=== PATIENT | female | born 1930 | race Caucasian/White ===

== ENCOUNTER 2017-01-25 16:16 | Inpatient (IN) | payer OTHER, BC ==
[2017-01-25] MEDS ORDERED: NS 1,000 ML IV ONE (16:30)
[2017-01-25 16:45] LABS: % IMMATURE GRANULYOCYTES 0.5 % (0.0-1.1); ABSOLUTE IMMATURE GRANULOCYTES 0.05 10^3/uL (0.00-0.10); ADD DIFF? NO; ADD MORPH? NO; ADD SCAN? NO; ATYPICAL LYMPHOCYTE FLAG 0 (0-99); FRAGMENT RBC FLAG 20 (0-99); HEMATOCRIT 45.1 % (38.0-47.0); LEFT SHIFT FLG 0 (0-99); LIPEMIA HEMOLYSIS FLAG 80 (0-99); MEAN CELL HEMOGLOBIN 32.5 pg (27.9-34.1); MEAN CELL HEMOGLOBIN CONCENTR. 33.3 g/dL (32.4-36.7); MEAN CELL VOLUME 97.6 fL (81.5-99.8); MEAN PLATELET VOLUME 10.7 fL (8.7-11.7); PLATELET CLUMPS FLAG 0 (0-99); PLATELET COUNT 243 10^3/uL (150-400); RED BLOOD CELL COUNT 4.62 10^6/uL (4.18-5.33); RED CELL DISTRIBUTION WIDTH 17.2 % (11.5-15.2)
[2017-01-25 16:56] LABS: ANION GAP 11 mEq/L (8-16); CALCIUM 10.4 mg/dL (8.5-10.4); CARBON DIOXIDE 19 mEq/l (22-31); CHLORIDE 105 mEq/L (97-110); CREATININE 1.6 mg/dL (0.6-1.0); GLOMERULAR FILTRATION RATE 31; GLUCOSE 137 mg/dL (70-100); SODIUM 135 mEq/L (134-144)
[2017-01-25 17:22] LABS: POTASSIUM 7.2 mEq/L (3.5-5.2)
--- NOTE | 2017-01-25 17:33 | CPEKG ---
Heart Rate: 64 RR Interval: 938 QRSD Interval: 92 QT Interval: 412 QTC Interval: 425 QRS [place]: -42 T Wave [place]: -34 EKG Severity - ABNORMAL ECG - EKG Impression: ATRIAL FIBRILLATION, V-RATE 55-74 EKG Impression: LEFT AXIS DEVIATION EKG Impression: ABNORMAL T, CONSIDER ISCHEMIA, INFERIOR LEADS Electronically Signed By: Roger Giraldo 25-Jan-2017 19:33:55
[2017-01-25] MEDS ORDERED: INSULIN REGULAR HUMAN 100 UNIT/ML IVP ONE (17:45)
[2017-01-25] MEDS ORDERED: SODIUM BICARBONATE 150 MEQ in D5W 1,000 ML IV ONE (17:45)
[2017-01-25] MEDS ORDERED: CALCIUM GLUC 10% 1 GM/10 ML VIAL IVP ONE (17:45)
[2017-01-25] MEDS ORDERED: ALBUTEROL 3 ML DEYVIAL IH ONE (17:45)
[2017-01-25] MEDS ORDERED: INSULIN REGULAR HUMAN 10 UNIT, COSIGN. REQUIRED 1 EA in D10W 500 ML IV ONE (17:45)
[2017-01-25] MEDS ORDERED: D50W 25 GM/50 ML SYR IVP ONE (17:45)
--- NOTE | 2017-01-25 17:53 | EDPHY ---
H & P Stated Complaint: weakness starting this morning Time Seen by Provider: 01/25/17 16:20 HPI/ROS: CHIEF COMPLAINT: Generalized weakness HISTORY OF PRESENT ILLNESS: The patient presents to the ED with complaints of generalized weakness. The patient has had several weeks of diarrhea. The patient and her do not believe she has been on recent antibiotics. She has a history of atrial fibrillation and is anticoagulated. The patient has had 2 episodes today which sounds consistent with vasovagal syncope where she has been unable to get up from a seated position secondary to weakness. The patient has not had any fall or trauma. The patient denies any headache, neck pain, shortness of breath or focal numbness or weakness. The patient reports that her symptoms of weakness are moderate to severe in nature. The symptoms are endorse by the patient's . REVIEW OF SYSTEMS: A comprehensive 10 point review of systems is otherwise negative aside from elements mentioned in the history of present illness. Source: Patient Exam Limitations: No limitations - Personal History Current Tetanus/Diphtheria Vaccine: Yes Current Tetanus Diphtheria and Acellular Pertussis (TDAP): Yes Tetanus Vaccine Date: 2007 per pt's - Medical/Surgical History Hx Asthma: No Hx Chronic Respiratory Disease: No Hx Diabetes: Yes Hx Cardiac Disease: Yes Hx Renal Disease: No Hx Cirrhosis: No Hx Alcoholism: No Hx HIV/AIDS: No Hx Splenectomy or Spleen Trauma: No Other PMH: pmh- afib, htn, hld, obesity, CAD, BLE edema, BLE ulcers, sleep apnea - CPAP hs, SAH 2011, mulitple falls, DM II, pleural effusions, PE, gout-right index finger. psh- L artificial knee, T/A, stent 1995- - Social History Smoking Status: Former smoker - Physical Exam Exam: General Appearance: Elderly female Eyes: Pupils equal and round no pallor or injection ENT, Mouth: Dry mucous membranes Respiratory: There are no retractions, lungs are clear to auscultation Cardiovascular: Regular rate and rhythm Gastrointestinal: Abdomen is soft and nontender, no masses, bowel sounds normal Neurological: A&O, normal motor function, normal sensory exam, normal cranial nerves Skin: Warm and dry, no rashes Musculoskeletal: Neck is supple nontender Extremities: symmetrical, full range of motion Constitutional: Initial Vital Signs Temperature (C) 36.5 C 01/25/17 16:22 Heart Rate 73 01/25/17 16:22 Respiratory Rate 16 01/25/17 16:22 Blood Pressure 149/78 H 01/25/17 16:22 O2 Sat (%) 95 01/25/17 16:22 O2 Delivery Mode Room Air Allergies/Adverse Reactions: Sulfa (Sulfonamide Antibiotics) Allergy (Unknown, Verified 07/29/16 23:11) Home Medications: Medication Instructions Recorded Vit C/Dl-E AC/Lut/Copper/Znox 1 each PO DAILY 10/05/11 [Preservision Softgel] Ascorbic Acid [Vitamin C 500 mg 500 mg PO BID 06/16/14 (*)] Calcium Carbonate [Tums 500MG (*)] 500 mg PO BID 06/16/14 Cyanocobalamin [Vitamin B12 (*)] 1,000 mcg PO DAILY 06/16/14 amLODIPine BESYLATE [Norvasc 5 mg 5 mg PO DAILY 06/16/14 (*)] metFORMIN HCL [Glucophage 500 mg 1,000 mg PO BIDMEAL 06/16/14 (*)] Allopurinol [Allopurinol 300 MG 150 mg PO DAILY 09/18/15 (RX)] Aspirin EC [Aspirin EC 81 mg (*)] 81 mg PO DAILY 09/18/15 Cholecalciferol Vit D3 [Vitamin D3 2,000 units PO DAILY 09/18/15 2000 units] Warfarin Sodium [Coumadin 5MG (*)] 2.5 mg PO SUTUWEFRSA@09/18/15 [place]-3 Fatty Acids [Fish Oil 1000 1,000 mg PO BID 03/30/16 mg (*)] Spironolactone [Aldactone 25 MG 25 mg PO DAILY 03/30/16 (*)] Warfarin Sodium [Coumadin 3MG (*)] 3 mg PO MOTH@03/30/16 Medical Decision Making - Diagnostics EKG Interpretation: EKG: Complete interpretation has been separately recorded in the [facility] archive. Summary impression: Atrial fibrillation, nonspecific ST T wave changes noted ED Course/Re-evaluation: The patient is noted to have acute hyperkalemia with potassium of 6.9 on i-STAT testing and 7.2 on formal lab testing. Her EKG demonstrates rate controlled AFib with nonspecific ST T wave changes noted. The patient was placed on a patient monitor. She received a L of normal saline. She received IV calcium, insulin, glucose and bicarb. I reviewed the patient's medicines and the [facility]. The patient is currently on spironolactone. The patient presents to the ED with acute hyperkalemia likely secondary to dehydration, renal insufficiency and potentially spironolactone. Patient did received treatment of her acute hyperkalemia. She has no evidence of an unstable arrhythmia noted on her EKG. The patient will require admission to the hospital for close observation and treatment. Consultation is made with Dr. Harinder Coombs at 6:30 p.m. who will admit the patient. Differential Diagnosis: Differential diagnosis considered includes dehydration, metabolic abnormality, renal failure, unstable arrhythmia - Data Points Laboratory Results: Laboratory Results 01/25/17 16:30 01/25/17 16:30 01/25/17 01/25/17 01/25/17 17:48 16:30 16:30 WBC 10.28 10^3/uL H 10^3/uL (3.80-9.50) RBC 4.62 10^6/uL 10^6/uL (4.18-5.33) Hgb 15.0 g/dL g/dL (12.6-16.3) Hct 45.1 % % (38.0-47.0) MCV 97.6 fL fL (81.5-99.8) MCH 32.5 pg pg (27.9-34.1) MCHC 33.3 g/dL g/dL (32.4-36.7) RDW 17.2 % H % (11.5-15.2) Plt Count 243 10^3/uL 10^3/uL (150-400) MPV 10.7 fL fL (8.7-11.7) Neut % (Auto) 84.3 % H % (39.3-74.2) Lymph % (Auto) 7.8 % L % (15.0-45.0) [place] % (Auto) 6.9 % % (4.5-13.0) Eos % (Auto) 0.2 % L % (0.6-7.6) Baso % (Auto) 0.3 % % (0.3-1.7) Nucleat RBC Rel Count 0.0 % % (0.0-0.2) Absolute Neuts (auto) 8.67 10^3/uL H 10^3/uL (1.70-6.50) Absolute Lymphs (auto) 0.80 10^3/uL L 10^3/uL (1.00-3.00) Absolute Monos (auto) 0.71 10^3/uL 10^3/uL (0.30-0.80) Absolute Eos (auto) 0.02 10^3/uL L 10^3/uL (0.03-0.40) Absolute Basos (auto) 0.03 10^3/uL 10^3/uL (0.02-0.10) Absolute Nucleated RBC 0.00 10^3/uL 10^3/uL (0-0.01) Immature Gran % 0.5 % % (0.0-1.1) Immature Gran # 0.05 10^3/uL 10^3/uL (0.00-0.10) PT 30.5 SEC H SEC (12.0-15.0) INR 2.88 H (0.83-1.16) Sodium 135 mEq/L mEq/L (134-144) Potassium 7.2 mEq/L H* mEq/L (3.5-5.2) Chloride 105 mEq/L mEq/L (97-110) Carbon Dioxide 19 mEq/l L mEq/l (22-31) Anion Gap 11 mEq/L mEq/L (8-16) BUN 38 mg/dL H mg/dL (7-23) Creatinine 1.6 mg/dL H mg/dL (0.6-1.0) Estimated GFR 31 Glucose 137 mg/dL H mg/dL (70-100) Calcium 10.4 mg/dL mg/dL (8.5-10.4) Medications Given: Discontinued Medications Sodium Chloride (Ns) 1,000 mls @ 0 mls/hr IV ONCE ONE PRN Reason: Wide Open Stop: 01/25/17 16:31 Last Admin: 01/25/17 17:00 Dose: 1,000 mls Departure - Departure Disposition: [facility] Acute Clinical Impression: Dehydration, Diarrhea, Hyperkalemia Condition: Fair
[2017-01-25 18:00] LABS: INR 2.88 (0.83-1.16); PROTIME(PATIENT) 30.5 SEC (12.0-15.0)
[2017-01-25 19:56] LABS: COLOR YELLOW; LEUKOCYTE ESTERASE,URINE NEGATIVE (NEGATIVE); NITRITE,URINE NEGATIVE (NEGATIVE)
[2017-01-25] MEDS ORDERED: ONDANSETRON DISINTEGRATING 4 MG TAB PO PRN (20:22)
[2017-01-25] MEDS ORDERED: ACETAMINOPHEN 325 MG TAB PO PRN (20:22)
[2017-01-25] MEDS ORDERED: ONDANSETRON 4 MG/2 ML VIAL IVP PRN (20:22)
[2017-01-25] MEDS ORDERED: SODIUM POLY SULF 15 GM/60 ML BOTTLE PO ONE ×2 (20:34→23:30)
[2017-01-25 20:38] LABS: POTASSIUM 5.9 mEq/L (3.5-5.2)
[2017-01-25 21:28] LABS: MAGNESIUM 1.4 mg/dL (1.6-2.3)
[2017-01-26 00:40] LABS: ANION GAP 10 mEq/L (8-16); CALCIUM 9.3 mg/dL (8.5-10.4); CARBON DIOXIDE 20 mEq/l (22-31); CHLORIDE 106 mEq/L (97-110); CREATININE 1.3 mg/dL (0.6-1.0); GLOMERULAR FILTRATION RATE 39; GLUCOSE 133 mg/dL (70-100); POTASSIUM 5.9 mEq/L (3.5-5.2); SODIUM 136 mEq/L (134-144)
[2017-01-26 04:54] LABS: % IMMATURE GRANULYOCYTES 0.6 % (0.0-1.1); ABSOLUTE IMMATURE GRANULOCYTES 0.04 10^3/uL (0.00-0.10); ADD DIFF? NO; ADD MORPH? NO; ADD SCAN? NO; ATYPICAL LYMPHOCYTE FLAG 10 (0-99); FRAGMENT RBC FLAG 20 (0-99); HEMATOCRIT 38.5 % (38.0-47.0); HEMOGLOBIN 12.7 g/dL (12.6-16.3); LEFT SHIFT FLG 10 (0-99); LIPEMIA HEMOLYSIS FLAG 80 (0-99); MEAN CELL HEMOGLOBIN 32.7 pg (27.9-34.1); MEAN CELL VOLUME 99.2 fL (81.5-99.8); MEAN PLATELET VOLUME 10.6 fL (8.7-11.7); PLATELET CLUMPS FLAG 0 (0-99); PLATELET COUNT 189 10^3/uL (150-400); RED BLOOD CELL COUNT 3.88 10^6/uL (4.18-5.33); RED CELL DISTRIBUTION WIDTH 17.5 % (11.5-15.2)
[2017-01-26 05:04] LABS: INR 3.13 (0.83-1.16); PROTIME(PATIENT) 32.6 SEC (12.0-15.0)
[2017-01-26 05:18] LABS: ANION GAP 9 mEq/L (8-16); CARBON DIOXIDE 23 mEq/l (22-31); CHLORIDE 107 mEq/L (97-110); CREATININE 1.3 mg/dL (0.6-1.0); GLOMERULAR FILTRATION RATE 39; GLUCOSE 77 mg/dL (70-100); POTASSIUM 5.7 mEq/L (3.5-5.2); SODIUM 139 mEq/L (134-144)
[2017-01-26 09:39] LABS: ANION GAP 8 mEq/L (8-16); CARBON DIOXIDE 22 mEq/l (22-31); CHLORIDE 107 mEq/L (97-110); CREATININE 1.2 mg/dL (0.6-1.0); GLOMERULAR FILTRATION RATE 43; GLUCOSE 69 mg/dL (70-100); POTASSIUM 5.9 mEq/L (3.5-5.2); SODIUM 137 mEq/L (134-144)
[2017-01-26] MEDS: ASPIRIN EC 81 MG TAB PO SCH (09:44)
--- NOTE | 2017-01-26 10:41 | GHP ---
[f rep st] HISTORY AND PHYSICAL DATE OF ADMISSION: 01/25/2017 CHIEF COMPLAINT: Weakness. HISTORY OF PRESENT ILLNESS: This is an 86-year-old female who presents with weakness. This has been getting worse over the past week or so. She has had a significant amount of diarrhea. She had an ep isode of presyncope. She went over and sat on the side of the couch, was unable to scoot herself, an d called medical alert. Firemen came and helped her. Her then came home from work. The firem en were gone. She was so weak and felt like she was going to fall, so he then called EMS. EMS michaela t her to the Emergency Department. In terms of her diarrhea, she is not a great historian. She says that they have been occasionally fo rmed sometimes loose. She says that she has been having them every 4 or 5 hours for the past couple of weeks. She does not describe it as runny. PAST MEDICAL/SURGICAL HISTORY: 1. Atrial fibrillation. 2. Coronary artery disease status post stent. 3. History of a subarachnoid hemorrhage. 4. Hypertension. 5. Sleep apnea. 6. Diastolic dysfunction. 7. Type 2 diabetes mellitus. 8. Obstructive sleep apnea. 9. Hyperlipidemia. 10. Chronic leg edema. MEDICATIONS: Please see medication reconciliation. ALLERGIES: Sulfa. FAMILY HISTORY: Diabetes and heart disease. SOCIAL HISTORY: She is . Lives independently with her . She does not have a problem w ith alcohol. She does not smoke. REVIEW OF SYSTEMS: A 10-point review of systems is conducted and is negative, except per HPI. PHYSICAL EXAM: VITAL SIGNS: Blood pressure 128/74, heart rate 72, respiration rate 18, saturating 9 5% on room air, temperature 36.5. GENERAL: The patient is a very pleasant female, lying in bed comfo rtably, in no acute distress. HEENT: Shows her to be normocephalic, atraumatic. CARDIOVASCULAR: Show s her to be irregularly irregular. There are no murmurs, rubs, or gallops. PULMONARY: Lungs clear to auscultation bilaterally. ABDOMEN: Soft, nontender, nondistended. SKIN: No rash. : No [place]. NEUR OLOGIC: Shows her to be alert and oriented x3. She is moving all extremities. There is no focal weak ness. She is globally somewhat weak. LABS: Initial potassium was 7.2, creatinine 1.6, BUN 38, bicarb is 19. DATA: 1. I discussed this with Dr. Giraldo in the emergency department. 2. I personally reviewed and interpreted her EKG. It showed atrial fibrillation. She has a mildly p eaked T-wave in V2, but no other peaked T-waves. She has T-wave inversions in III and F which are un changed from her previous. IMPRESSION AND PLAN: An 86-year-old female with weakness/hyperkalemia. 1. Hyperkalemia: It is quite profound. She is making urine. On I-STAT her potassium is currently do wn to 5.8; repeat lab potassium is pending. She is on Aldactone; we will hold this. She also has an acute kidney injury which I suspect is prerenal given her history. For now, will aggressively hydrat e her and follow her potassium closely. Given how profound her hyperkalemia was, I will give her Ratna exalate and q.4 basic metabolic panels have been ordered. 2. Weakness: I suspect that this is due to dehydration. We will aggressively hydrate her as above a nd follow this. PT and OT have been ordered. 3. History of atrial fibrillation: Will continue her Coumadin. Her INR is currently therapeutic. 4. Acute kidney injury: Prerenal. Hydration as above. If it does not improve, will work this up fur ther. 5. History of coronary artery disease: Continue her aspirin. 6. Hypertension: Will hold her amlodipine for now given her prerenal injury. 7. Diabetes: Hold her metformin given her elevated creatinine. 8. Code status is full. 9. Venous thromboembolism risk is low. She is therapeutic on warfarin. /[id number]/MODL
[2017-01-26] MEDS ORDERED: NS 1,000 ML IV SCH (13:30)
[2017-01-26] MEDS: FUROSEMIDE 40 MG/4 ML VIAL IVP SCH (14:19)
[2017-01-26] MEDS ORDERED: ALTEPLASE 2 MG VIAL IVP PRN (15:22)
[2017-01-26] MEDS ORDERED: WARFARIN SODIUM 5 MG TAB PO SCH (16:00)
[2017-01-26] MEDS: WARFARIN SODIUM 2.5 MG TAB PO SCH (16:51)
[2017-01-26] MEDS: NS 1,000 ML IV SCH (22:15)
[2017-01-27] MEDS: NS 1,000 ML IV SCH (06:39)
[2017-01-27] MEDS ORDERED: D50W 25 GM/50 ML SYR IVP PRN (08:35)
[2017-01-27] MEDS: ASPIRIN EC 81 MG TAB PO SCH (09:28)
[2017-01-27] MEDS: FUROSEMIDE 40 MG/4 ML VIAL IVP SCH ×2 (09:28→15:06)
[2017-01-27 11:10] LABS: INR 2.57 (0.83-1.16); PROTIME(PATIENT) 27.9 SEC (12.0-15.0)
[2017-01-27] MEDS: INSULIN LISPRO 100 UNIT/ML SC SCH ×2 (12:19→18:30)
[2017-01-27] MEDS: WARFARIN SODIUM 2.5 MG TAB PO SCH (15:06)
--- NOTE | 2017-01-27 15:32 | HOSPPROG ---
Hospitalist Progress Note Assessment/Plan: Hyperkalemia - resolved with kayexalate, lasix and IVF's. Cont to hold Aldactone, possibly contributory to hyperkalemia. HARIKA - improved with IVF's, cont to monitor. A fib - INR therapeutic, pharmacy dosing coumadin Full code dispo - likely home in am Subjective: Pt feels well, a bit weak. No CP or SOB. Objective: Vital Signs Temp Pulse Resp BP Pulse Ox 36.7 C 73 16 117/86 H 97 01/27/17 11:35 01/27/17 11:35 01/27/17 11:35 01/27/17 11:35 01/27/17 11:35 Laboratory Results 01/26/17 04:05 01/26/17 01/27/17 01/28/17 05:59 05:59 05:59 Intake Total 2200 2340 Output Total 2375 900 Balance 2200 -35 -900 PT 27.9 SEC (12.0-15.0) H 01/27/17 10:50 INR 2.57 (0.83-1.16) H 01/27/17 10:50 - Physical Exam Constitutional: no apparent distress Eyes: PERRL Ears, Nose, Mouth, Throat: moist mucous membranes Cardiovascular: regular rate and rhythym Respiratory: no respiratory distress, clear to auscultation Skin: warm Musculoskeletal: full muscle strength Neurologic: AAOx3 Psychiatric: interacting appropriately ICD10 Worksheet Patient Problems: Problems Problem Status Onset Dehydration Acute Diarrhea Acute Hyperkalemia Acute Subarachnoid hemorrhage Active Afib Acute Bradycardia Acute CAD (coronary artery disease) Acute Chest pain Acute Effusion of elbow joint, right Acute Fall at home Acute Skin avulsion Acute Strain of right knee Acute
[2017-01-27 15:49] LABS: ANION GAP 7 mEq/L (8-16); CALCIUM 8.6 mg/dL (8.5-10.4); CARBON DIOXIDE 25 mEq/l (22-31); CHLORIDE 103 mEq/L (97-110); CREATININE 1.2 mg/dL (0.6-1.0); GLOMERULAR FILTRATION RATE 43; GLUCOSE 76 mg/dL (70-100); POTASSIUM 4.6 mEq/L (3.5-5.2); SODIUM 135 mEq/L (134-144)
[2017-01-28 06:33] LABS: INR 2.65 (0.83-1.16); PROTIME(PATIENT) 28.6 SEC (12.0-15.0)
[2017-01-28] MEDS: INSULIN LISPRO 100 UNIT/ML SC SCH ×2 (07:55→12:05)
[2017-01-28] MEDS: ASPIRIN EC 81 MG TAB PO SCH (08:28)
[2017-01-28] MEDS ORDERED: ALLOPURINOL 300 MG TAB PO SCH (11:30)
[2017-01-28] MEDS ORDERED: amLODIPine BESYLATE 5 MG TAB PO SCH (11:30)
[2017-01-28] MEDS ORDERED: ASCORBIC ACID 500 MG TAB PO SCH (11:30)
[2017-01-28 11:31] VITALS: BP 104/66; PULSE 66; RESP 16; TEMP 98.4; O2SAT 97
--- NOTE | 2017-01-28 12:46 | PDIAF ---
- Diagnosis Diagnosis: deconditioning Code Status: Full Code - Medication Management Discharge Medications: Medications to Continue on Transfer Vit C/Dl-E AC/Lut/Copper/Znox [Preservision Softgel] 1 each PO DAILY 10/05/11 [ Last Taken 09/18/15] Ascorbic Acid [Vitamin C 500 mg (*)] 500 mg PO BID 06/16/14 [Last Taken 09:00] Calcium Carbonate [Tums 500MG (*)] 500 mg PO BID 06/16/14 [Last Taken 09/18/15 09:00] Cyanocobalamin [Vitamin B12 (*)] 1,000 mcg PO DAILY 06/16/14 [Last Taken ] metFORMIN HCL [Glucophage 500 mg (*)] 1,000 mg PO BIDMEAL 06/16/14 [Last Taken 01/25/17] Allopurinol [Allopurinol 300 MG (RX)] 150 mg PO DAILY 09/18/15 [Last Taken 01/25] Aspirin EC [Aspirin EC 81 mg (*)] 81 mg PO DAILY 09/18/15 [Last Taken 01/25/17] Cholecalciferol Vit D3 [Vitamin D3 2000 units] 2,000 units PO DAILY 09/18/15 [ Last Taken 09/18/15] Warfarin Sodium [Coumadin 5MG (*)] 2.5 mg PO DAILY 09/18/15 [Last Taken 01/25/17 ] [place]-3 Fatty Acids [Fish Oil 1000 mg (*)] 1,000 mg PO BID 03/30/16 [Last Taken Unknown] Discharge Medications: Refer to the Discharge Home Medication list for PRN reason. - Orders Services needed: Registered Nurse, Physical Therapy, Occupational Therapy Diet Recommendation: ADA 2000 consistent carb - Labs/Radiology BMP Date: 01/31/17 (results to jeremiah LEIGH) PT/INR Date: 01/31/17 (results to jeremiah LEIGH) - Follow Up Care Current Providers and Referrals: Jim Eddy MD [Primary Care Provider] - As per Instructions
--- NOTE | 2017-01-28 21:04 | GDS ---
[f rep st] DISCHARGE SUMMARY DISCHARGE DIAGNOSES: 1. Hyperkalemia, resolved. 2. Acute kidney injury, improved. 3. Atrial fibrillation. 4. Chronic anticoagulation with a subtherapeutic INR. 5. Atrial fibrillation. CONSULTANTS: None. PROCEDURES: PICC line insertion January 26, 2017. HISTORY: For details please see dictated history and physical dated January 25, 2017. In brief, the patient is an 86-year-old female with a history of atrial fibrillation and coronary ar vinny disease, who presented to the Emergency Department with weakness. Workup revealed hyperkalemia and acute kidney injury. She was admitted to hospital for further management. HOSPITAL COURSE: The patient was admitted to the telemetry unit. Her Aldactone was held as a possi ble offending agent precipitating hyperkalemia. It was thought her acute kidney injury was due to p rerenal volume depletion. She received aggressive hydration. She was treated with Kayexalate follo wed by Lasix and IV fluids. With these interventions, her potassium normalized to 4.5. Her creatin ine improved from 1.6 to 1.2. Given her improvement in creatinine down to 1.2, her metformin is res umed at discharge. She should have followup basic metabolic panel on Tuesday to ensure her creatinin e has not risen above 1.5, at which point the metformin would need to be discontinued. Her blood wells gars have actually been very well controlled in the 90s to 100s. This can be resumed after she has a repeat metabolic panel on Tuesday to ensure her creatinine remains below 1.5. Her Aldactone was di scontinued at discharge. I suspect this contributed to her hyperkalemia and may have also contribut ed to her acute kidney injury. She was found to be quite deconditioned. Upon therapy evaluations, it was recommended she transfer to a fdc facility for rehab and ongoing strengthening. DISPOSITION: Patient is discharged to a fdc facility in stable condition. FOLLOWUP: 1. The patient will have a followup basic metabolic panel and an INR on Tuesday. 2. She is instructed to follow up with her primary care physician, Dr. Jim Eddy. DISCHARGE MEDICATIONS: She will continue all outpatient medications as prescribed. Please see [facility] for completed, updated outpatient medication list. Discontinued medications include spironolactone and amlodipine. The spironolactone is discontinued due to above reasons. I have also stopped her amlodipine for the time being, as she has had blood p ressures hovering around 100 systolic. Should her blood pressures warrant, this can be resumed as i ndicated. /[id number]/MODL
== END 2017-01-28 15:11 | DRG 641 ==
LOC: EDUNIT# → F2W 21:02
PROVIDERS: ADMIT Student in an Organized Health Care Education/Training Program; ATTEND Hospitalist
PROC: 02HV33Z Insertion of Infusion Device into Superior Vena Cava, Percutaneous Approach (ICD-10-PCS; principal; 2017-01-26)
DX: E87.5 Hyperkalemia (principal); N17.9 Acute kidney failure, unspecified; I48.91 Unspecified atrial fibrillation; I25.10 Atherosclerotic heart disease of native coronary artery without angina pectoris; I10 Essential (primary) hypertension; E11.9 Type 2 diabetes mellitus without complications; G47.33 Obstructive sleep apnea (adult) (pediatric); E78.5 Hyperlipidemia, unspecified; Z79.01 Long term (current) use of anticoagulants; Z86.711 Personal history of pulmonary embolism; Z95.5 Presence of coronary angioplasty implant and graft
CPT/HCPCS: 82947-QW; 96365; 97116-GP; 97162-GP; 97166-GO; 97535-GO; C1751; G8978-GP-CK; G8979-GP-CI; G8987-GO-CL; G8988-GO-CJ; J0610; J1815

== ENCOUNTER 2017-04-05 13:43 | Inpatient (IN) | payer OTHER, BC ==
--- NOTE | 2017-04-05 14:58 | CPEKG ---
Heart Rate: 89 RR Interval: 674 QRSD Interval: 82 QT Interval: 384 QTC Interval: 468 QRS [place]: -30 T Wave [place]: 46 EKG Severity - ABNORMAL ECG - EKG Impression: ATRIAL FIBRILLATION, V-RATE 68-111 EKG Impression: LEFT AXIS DEVIATION Electronically Signed By: Roger Giraldo 05-Apr-2017 16:05:58
[2017-04-05] MEDS ORDERED: NS 1,000 ML IV ONE (15:07)
--- NOTE | 2017-04-05 15:07 | EDPHY ---
H & P Stated Complaint: fall yesterday/ems responded/increasing prob with walking Time Seen by Provider: 04/05/17 14:36 HPI/ROS: CHIEF COMPLAINT: Weakness HISTORY OF PRESENT ILLNESS: The patient presents to the emergency department with increasing weakness. She sustained a mechanical fall yesterday. She sprained her right foot knee. She also sprained her wrist. The patient is anticoagulated with Coumadin. The patient did not strike her head. She denies headache, neck pain or loss of consciousness. The patient does have a history of a left knee replacement. She has chronic arthritis in her right knee. The patient is unable to ambulate. Her elderly had to call the paramedics for a lift assist. The patient also sustained multiple superficial skin tears. She has had no history of fever, cough or congestion. The patient is chronically anticoagulated for atrial fibrillation. REVIEW OF SYSTEMS: A comprehensive 10 point review of systems is otherwise negative aside from elements mentioned in the history of present illness. Source: Patient - Personal History Current Tetanus/Diphtheria Vaccine: Yes Tetanus Vaccine Date: 2007 per pt's - Medical/Surgical History Hx Asthma: No Hx Chronic Respiratory Disease: No Hx Diabetes: Yes Hx Cardiac Disease: Yes Hx Renal Disease: No Hx Cirrhosis: No Hx Alcoholism: No Hx HIV/AIDS: No Hx Splenectomy or Spleen Trauma: No Other PMH: pmh- afib, htn, hld, obesity, CAD, BLE edema, BLE ulcers, sleep apnea - CPAP hs, SAH 2011, mulitple falls, DM II, pleural effusions, PE, gout-right index finger. psh- L artificial knee, T/A, stent 1995- - Social History Smoking Status: Former smoker - Physical Exam Exam: General Appearance: Elderly female, no acute distress Eyes: Pupils equal and round no pallor or injection ENT, Mouth: Dry mucous membranes Respiratory: There are no retractions, lungs are clear to auscultation Cardiovascular: Regular rate and rhythm Gastrointestinal: Obese, no focal tenderness to palpation, normal bowel sounds Neurological: 5/5 strength noted all 4 extremities Skin: Multiple superficial skin tears Musculoskeletal: Neck is supple nontender, no C/T/L spine tenderness Extremities: Tenderness to palpation right wrist, tenderness to palpation right knee with associated right knee effusion, tenderness to palpation right foot. Patient is noted to have bilateral lower extremity edema. Constitutional: Initial Vital Signs Temperature (C) 36.8 C 04/05/17 14:01 Heart Rate 90 04/05/17 14:01 Respiratory Rate 17 04/05/17 14:01 Blood Pressure 106/71 04/05/17 14:01 O2 Sat (%) 90 L 04/05/17 14:01 O2 Delivery Mode Room Air O2 (L/minute) 2 Allergies/Adverse Reactions: Sulfa (Sulfonamide Antibiotics) Allergy (Unknown, Verified 04/05/17 13:59) Medical Decision Making - Diagnostics EKG Interpretation: EKG: Complete interpretation has been separately recorded in the [facility] archive. Summary impression: Atrial fibrillation, rate 89 Imaging Results: Imaging Impressions Chest X-Ray 04/05/17 15:12 Impression: Interval development of right lower lobe atelectasis/infiltrate from prior study. Persistent cardiomegaly. Foot X-Ray 04/05/17 15:12 Impression: 1. Severe osteopenia/osteoporosis. 2. Suspect transverse nondisplaced fracture through the distal right fifth metatarsal at the neck-head junction. 3. Severe hallux valgus. 4. Deformity of the second toe. Knee X-Ray 04/05/17 15:12 Impression: 1. Severe osteopenia/osteoporosis, which may limit visualization of fracture. No fracture identified. 2. Severe lateral compartment osteoarthritis. 3. Moderate knee joint effusion. Wrist X-Ray 04/05/17 15:13 Impression: 1. Severe osteopenia/osteoporosis. No definite fracture identified. 2. Degenerative changes. 3. Slight scapholunate interspace widening. 4. Chondrocalcinosis. ED Course/Re-evaluation: The patient presents to the ED after mechanical fall yesterday. She has a nondisplaced fracture of her 5th metatarsal. She also has a right knee effusion. The patient was noted to be dehydrated with an elevated BUN. She had an IV established. She received a L of normal saline. The patient had been living independently. She clearly is unable to to walk at this point time is a fall risk. The patient will require admission to the hospital in may require placement into a senior living facility/rehab. The patient will be seen in consultation by Dr. Duarte from Orthopedic surgery. The patient will be admitted primarily by the hospitalist service. I discussed the case with Dr. Harinder Coombs at 4:30 p.m.. Differential Diagnosis: Differential diagnosis considered includes foot fracture, wrist fracture, knee effusion, metabolic abnormality, dehydration, arrhythmia - Data Points Laboratory Results: Laboratory Results 04/05/17 15:00 04/05/17 15:00 04/05/17 04/05/17 04/05/17 15:00 15:00 15:00 WBC 7.66 10^3/uL 10^3/uL (3.80-9.50) RBC 3.68 10^6/uL L 10^6/uL (4.18-5.33) Hgb 12.0 g/dL L g/dL (12.6-16.3) Hct 37.7 % L % (38.0-47.0) MCV 102.4 fL H fL (81.5-99.8) MCH 32.6 pg pg (27.9-34.1) MCHC 31.8 g/dL L g/dL (32.4-36.7) RDW 16.0 % H % (11.5-15.2) Plt Count 223 10^3/uL 10^3/uL (150-400) MPV 11.1 fL fL (8.7-11.7) Neut % (Auto) 77.9 % H % (39.3-74.2) Lymph % (Auto) 9.9 % L % (15.0-45.0) [place] % (Auto) 10.8 % % (4.5-13.0) Eos % (Auto) 0.4 % L % (0.6-7.6) Baso % (Auto) 0.5 % % (0.3-1.7) Nucleat RBC Rel Count 0.0 % % (0.0-0.2) Absolute Neuts (auto) 5.96 10^3/uL 10^3/uL (1.70-6.50) Absolute Lymphs (auto) 0.76 10^3/uL L 10^3/uL (1.00-3.00) Absolute Monos (auto) 0.83 10^3/uL H 10^3/uL (0.30-0.80) Absolute Eos (auto) 0.03 10^3/uL 10^3/uL (0.03-0.40) Absolute Basos (auto) 0.04 10^3/uL 10^3/uL (0.02-0.10) Absolute Nucleated RBC 0.00 10^3/uL 10^3/uL (0-0.01) Immature Gran % 0.5 % % (0.0-1.1) Immature Gran # 0.04 10^3/uL 10^3/uL (0.00-0.10) PT 22.7 SEC H SEC (12.0-15.0) INR 1.99 H (0.83-1.16) APTT 34.7 SEC SEC (23.0-38.0) Sodium 140 mEq/L mEq/L (134-144) Potassium 4.3 mEq/L mEq/L (3.5-5.2) Chloride 104 mEq/L mEq/L (97-110) Carbon Dioxide 24 mEq/l mEq/l (22-31) Anion Gap 12 mEq/L mEq/L (8-16) BUN 35 mg/dL H mg/dL (7-23) Creatinine 1.0 mg/dL mg/dL (0.6-1.0) Estimated GFR 53 Glucose 104 mg/dL H mg/dL (70-100) Calcium 9.7 mg/dL mg/dL (8.5-10.4) Departure - Departure Disposition: [facility] Acute Clinical Impression: Knee effusion, right, Fracture of metatarsal of right foot, closed, Afib, Skin tear of left upper extremity, Skin tear of right upper extremity Condition: Fair Referrals: Jim Eddy MD [Primary Care Provider] - As per Instructions
[2017-04-05 15:22] LABS: % IMMATURE GRANULYOCYTES 0.5 % (0.0-1.1); ABSOLUTE IMMATURE GRANULOCYTES 0.04 10^3/uL (0.00-0.10); ADD DIFF? NO; ADD MORPH? NO; ADD SCAN? NO; ATYPICAL LYMPHOCYTE FLAG 10 (0-99); FRAGMENT RBC FLAG 10 (0-99); HEMATOCRIT 37.7 % (38.0-47.0); LEFT SHIFT FLG 0 (0-99); LIPEMIA HEMOLYSIS FLAG 80 (0-99); MEAN CELL HEMOGLOBIN 32.6 pg (27.9-34.1); MEAN CELL HEMOGLOBIN CONCENTR. 31.8 g/dL (32.4-36.7); MEAN CELL VOLUME 102.4 fL (81.5-99.8); MEAN PLATELET VOLUME 11.1 fL (8.7-11.7); PLATELET CLUMPS FLAG 20 (0-99); PLATELET COUNT 223 10^3/uL (150-400); RED BLOOD CELL COUNT 3.68 10^6/uL (4.18-5.33)
[2017-04-05 15:30] LABS: APTT 34.7 SEC (23.0-38.0); INR 1.99 (0.83-1.16); PROTIME(PATIENT) 22.7 SEC (12.0-15.0)
[2017-04-05 15:38] LABS: ANION GAP 12 mEq/L (8-16); CALCIUM 9.7 mg/dL (8.5-10.4); CARBON DIOXIDE 24 mEq/l (22-31); CHLORIDE 104 mEq/L (97-110); GLOMERULAR FILTRATION RATE 53; GLUCOSE 104 mg/dL (70-100); POTASSIUM 4.3 mEq/L (3.5-5.2); SODIUM 140 mEq/L (134-144)
[2017-04-05] MEDS ORDERED: ONDANSETRON 4 MG/2 ML VIAL IVP PRN (17:18)
[2017-04-05] MEDS ORDERED: ONDANSETRON DISINTEGRATING 4 MG TAB PO PRN (17:18)
[2017-04-05] MEDS ORDERED: ACETAMINOPHEN 325 MG TAB PO PRN (17:18)
[2017-04-05] MEDS ORDERED: NON-FORMULARY NEW DRUG (Ranitidine Hcl [Ranitidine Hcl] 300 MG) PO PRN (17:26)
--- NOTE | 2017-04-05 18:42 | GHP ---
[f rep st] HISTORY AND PHYSICAL DATE OF ADMISSION: 04/05/2017 CHIEF COMPLAINT: Fall with knee and foot pain. HISTORY OF PRESENT ILLNESS: The patient is an 87-year-old female with a history of atrial fibrillation, on chronic anticoagulation, as well as osteoporosis and frequent falls, who presents to the emergency department after a fall. She states that she was in her bathroom and reached for a basin near the toilet, when she lost her balance and fell, hitting her knee and twisting her foot. She denies any syncope, presyncope, chest pain, shortness of breath, or heart palpitations. She has had no fevers, chills, cough, or shortness of breath. In the emergency department, she was found to have a metatarsal fracture on the as well as a right knee joint effusion. She is unable to ambulate, and she is admitted to the hospital for further management. She was recently discharged from the hospital 2 months ago and required a stint at rehab. She states she had not been home for very long before this event. PAST MEDICAL HISTORY: 1. Atrial fibrillation. 2. Chronic anticoagulation. 3. Coronary artery disease with history of prior stents. 4. History of subarachnoid hemorrhage. 5. Hypertension. 6. Sleep apnea. 7. Diastolic dysfunction. 8. Type 2 diabetes mellitus. 9. Obstructive sleep apnea. 10. Hyperlipidemia. 11. Chronic leg edema. MEDICATIONS: Please see Vputi for complete updated medication list. ALLERGIES: Sulfa. FAMILY HISTORY: Positive for diabetes and heart disease. SOCIAL HISTORY: The patient is and lives independently with her . She denies alcohol or tobacco. REVIEW OF SYSTEMS: A 10-point review of systems was performed and was negative except as per HPI. OBJECTIVE: VITAL SIGNS: Temperature 36.8, blood pressure 106/71, heart rate 90 , respiratory rate 70. She is 90% on room air. GENERAL: The patient is awake , alert, and oriented, in no acute distress. HEENT: Head is atraumatic, normocephalic. Pupils are equal, round, reactive to light. Extraocular muscles are intact. There is some scleral injection on the right. Oropharynx is clear. Mucous membranes are moist. NECK: Supple. There is no JVD. HEART : Irregularly irregular rhythm. LUNGS: Clear to auscultation bilaterally. ABDOMEN: Soft, nondistended, nontender. Normoactive bowel sounds. EXTREMITIES : There is 2+ bilateral peripheral edema with chronic venous stasis changes. There is a small right suprapatellar knee effusion, which is not tense, nor is it erythematous or warm. The foot is tender with movement. NEUROLOGIC: Grossly nonfocal. LABORATORY DATA: CBC reveals a normal white count, hemoglobin of 12, platelets of 223. INR is 1.99. Basic metabolic panel is remarkable for a BUN of 35. Otherwise normal. Blood sugar is 104. DIAGNOSTIC STUDIES: EKG shows atrial fibrillation with a heart rate of 89. Chest x-ray shows right lower lobe atelectasis versus an infiltrate. Foot x-ray shows severe osteopenia and osteoporosis with a transverse nondisplaced fracture through the distal 5th metatarsal at the neck- head junction, as well as severe hallux valgus and deformity of the 2nd toe. Knee x-ray shows a right knee joint effusion. Wrist x-ray is negative for fracture. ASSESSMENT AND PLAN: The patient is an 87-year-old female with history of atrial fibrillation, chronic anticoagulation, osteoarthritis, and frequent falls , who is admitted to the hospital with a metatarsal fracture and inability to ambulate. 1. Metatarsal fracture and right suprapatellar effusion secondary to a ground- level fall. Orthopedics was consulted in the emergency department. No surgery is recommended. She will be placed in a flat-soled shoe. She will require inpatient hospitalization for acute physical therapy/occupational therapy and pain control, possibly requiring intravenous opiates. She will likely require transfer to correction for ongoing rehab. 2. Frequent falls. As above, the patient will require physical therapy/ occupational therapy evaluations and probable transfer to correction facility. 3. Atrial fibrillation. The patient is anticoagulated on Coumadin. Her INR is 1.99. She did not hit her head, but she does have a history of subarachnoid hemorrhage. I discussed with her the risk-benefit of bleeding complications versus stroke prevention. She wishes to remain on Coumadin at this time. She is currently rate controlled without atrioventricular dao blockers. 4. Osteoporosis. This may be contributing to her fracture risk. I will defer to her outpatient clinician regarding appropriate management of calcium and vitamin D supplementation. 5. Coronary artery disease. The patient is chest pain free. We will continue her outpatient medications, including daily aspirin. 6. Chronic diastolic heart failure. The patient appears euvolemic on arrival. We will continue her outpatient torsemide dose. 7. Disposition. The patient is admitted to inpatient status, as she will likely require greater than 48 hours' hospitalization for ongoing management of her acute fractures, requiring physical therapy, occupational therapy, and pain control. A case management consult is requested for presumed correction facility planning. 8. Deep venous thrombosis prophylaxis. The patient is anticoagulated on Coumadin. 9. Code status. I had a lengthy discussion with the patient about code status. She is just unsure about this and will therefore remain full code by default. /[id number]/MODL MTDD
[2017-04-05] MEDS ORDERED: WARFARIN SODIUM 2.5 MG TAB PO ONE (19:45)
[2017-04-05] MEDS ORDERED: FAMOTIDINE 20 MG TAB PO PRN (19:46)
[2017-04-05] MEDS ORDERED: CALCIUM CARBONATE 500 MG CHEWABLE TAB PO PRN (20:20)
[2017-04-05] MEDS: OMEGA-3 FATTY ACIDS 1,000 MG CAP PO SCH (20:43)
[2017-04-05] MEDS: metFORMIN HCL 500 MG TAB PO SCH (20:44)
--- NOTE | 2017-04-06 03:52 | GCON ---
[f rep st] CONSULTATION DATE OF CONSULTATION: 04/05/2017 REASON FOR CONSULTATION: Left foot and right knee pain after fall. HISTORY RELATIVE TO CONSULTATION: Patient is an 87-year-old, limited household ambulator with a wal ker, who sustained a fall on the day of presentation in the emergency room. She noted pain in her l eft foot and right knee with difficulty ambulating secondary to her pain. PHYSICAL EXAMINATION: On examination, she has pitting edema in bilateral lower legs. Examination o f her right knee reveals a moderate amount of swelling without any significant effusion or tense eff usion. Her quadriceps mechanism is intact. She has some diffuse tenderness, but more focal tendern ess along the lateral joint line. Examination of her foot reveals diffuse swelling. Her distal neurovascular examination is grossly i ntact. She is able to flex, extend, laly and invert against resistance. She is focally tender carmella ng the base of her 5th metatarsal. IMAGING: AP and lateral radiographs of her left foot show very minimally displaced 5th metatarsal b ase fracture. Radiographs of her right knee reveal advanced valgus osteoarthritis without any evide nce of acute fracture. She has significant osteopenia. ASSESSMENT: 1. Right knee effusion. 2. Left 5th metatarsal base fracture. PLAN: It is recommended to have nonoperative treatment course for both of these be pursued. Regard ing her left foot, use of hard-soled shoe, ambulating as tolerated is recommended. If her knee effu pavan worsens, arthrocentesis could be considered, but I would not recommend that at this time. Foll ow up will be on a p.r.n. basis. /[id number]/MODL
[2017-04-06] MEDS: TORSEMIDE 10 MG TAB PO SCH (08:29)
[2017-04-06] MEDS: ALLOPURINOL 300 MG TAB PO SCH (08:29)
[2017-04-06] MEDS: metFORMIN HCL 500 MG TAB PO SCH ×2 (08:29→20:47)
[2017-04-06] MEDS: amLODIPine BESYLATE 5 MG TAB PO SCH (08:29)
[2017-04-06] MEDS: ASPIRIN EC 81 MG TAB PO SCH (08:29)
[2017-04-06] MEDS ORDERED: METFORMIN HCL 1000 MG PO SCH (09:00)
[2017-04-06] MEDS ORDERED: metFORMIN HCL 500 MG TAB PO SCH ×2 (09:00)
--- NOTE | 2017-04-06 15:37 | HOSPPROG ---
Hospitalist Progress Note Assessment/Plan: Metatarsal fracture and right suprapatellar effusion secondary to a ground- level fall. Orthopedics was consulted. No surgery is recommended. Cont PT/OT , will need SNF rehab due to difficulty with mobility. Frequent falls. As above, the patient will require physical therapy/ occupational therapy evaluations and probable transfer to care home facility. Atrial fibrillation. The patient is anticoagulated on Coumadin. Her INR is 1.99. She did not hit her head, but she does have a history of subarachnoid hemorrhage. I discussed with her the risk-benefit of bleeding complications versus stroke prevention. She wishes to remain on Coumadin at this time. She is currently rate controlled without atrioventricular dao blockers. Osteoporosis. This may be contributing to her fracture risk. I will defer to her outpatient clinician regarding appropriate management of calcium and vitamin D supplementation. Coronary artery disease. The patient is chest pain free. We will continue her outpatient medications, including daily aspirin. Chronic diastolic heart failure. The patient appears euvolemic on arrival. We will continue her outpatient torsemide dose. Disposition. Cont inpt, planning to return to [facility] rehab. Deep venous thrombosis prophylaxis. The patient is anticoagulated on Coumadin. Code status. Full code. Subjective: Pt feels ok. Little effort with PT today. No pain. Objective: Vital Signs Temp Pulse Resp BP Pulse Ox 36.7 C 66 20 118/68 90 L 04/06/17 15:18 04/06/17 15:18 04/06/17 15:18 04/06/17 15:18 04/06/17 15:18 04/05/17 04/06/17 04/07/17 05:59 05:59 05:59 Intake Total 150 300 Output Total 450 Balance -300 300 PT 22.7 SEC (12.0-15.0) H 04/05/17 15:00 INR 1.99 (0.83-1.16) H 04/05/17 15:00 - Physical Exam Constitutional: no apparent distress Eyes: PERRL Ears, Nose, Mouth, Throat: moist mucous membranes Cardiovascular: regular rate and rhythym Respiratory: no respiratory distress Skin: warm Musculoskeletal: full muscle strength Neurologic: AAOx3 Psychiatric: interacting appropriately ICD10 Worksheet Patient Problems: Problems Problem Status Onset Afib Acute Fracture of metatarsal of right foot, closed Acute Knee effusion, right Acute Skin tear of left upper extremity Acute Skin tear of right upper extremity Acute Subarachnoid hemorrhage Active Bradycardia Acute CAD (coronary artery disease) Acute Chest pain Acute Dehydration Acute Diarrhea Acute Effusion of elbow joint, right Acute Fall at home Acute Hyperkalemia Acute Skin avulsion Acute Strain of right knee Acute
[2017-04-06] MEDS: WARFARIN SODIUM 2.5 MG TAB PO SCH (17:53)
[2017-04-06] MEDS: OMEGA-3 FATTY ACIDS 1,000 MG CAP PO SCH (20:47)
[2017-04-07 05:25] LABS: INR 2.25 (0.83-1.16); PROTIME(PATIENT) 25.1 SEC (12.0-15.0)
[2017-04-07] MEDS: amLODIPine BESYLATE 5 MG TAB PO SCH (08:26)
[2017-04-07] MEDS: TORSEMIDE 10 MG TAB PO SCH (08:26)
[2017-04-07] MEDS: ASPIRIN EC 81 MG TAB PO SCH (08:26)
[2017-04-07] MEDS: metFORMIN HCL 500 MG TAB PO SCH ×2 (08:26→19:48)
[2017-04-07] MEDS: ALLOPURINOL 300 MG TAB PO SCH (08:27)
[2017-04-07] MEDS: WARFARIN SODIUM 2.5 MG TAB PO SCH (16:34)
--- NOTE | 2017-04-07 18:12 | HOSPPROG ---
Hospitalist Progress Note Assessment/Plan: Metatarsal fracture and right suprapatellar effusion secondary to a ground- level fall. Orthopedics was consulted. No surgery is recommended. Cont PT/OT , will need SNF rehab due to difficulty with mobility. Hard soled ortho shoe ordered for stability with ambulation. Frequent falls. As above, the patient will require physical therapy/ occupational therapy evaluations and probable transfer to [facility] facility. Atrial fibrillation. The patient is anticoagulated on Coumadin. Her INR is 1.99. She did not hit her head, but she does have a history of subarachnoid hemorrhage. I discussed with her the risk-benefit of bleeding complications versus stroke prevention. She wishes to remain on Coumadin at this time. She is currently rate controlled without atrioventricular dao blockers. Osteoporosis. This may be contributing to her fracture risk. I will defer to her outpatient clinician regarding appropriate management of calcium and vitamin D supplementation. Coronary artery disease. The patient is chest pain free. Cont outpt meds. Chronic diastolic heart failure. Euvolemic, continue her outpatient torsemide dose. Disposition. Cont inpt, planning to return to [facility] rehab, possibly tomorrow. Deep venous thrombosis prophylaxis. The patient is anticoagulated on Coumadin. Code status. Full code. Subjective: Feels well. Not ambulating much. No complaints. Objective: Vital Signs Temp Pulse Resp BP Pulse Ox 36.8 C 69 18 103/48 L 94 04/07/17 15:47 04/07/17 15:47 04/07/17 15:47 04/07/17 15:47 04/07/17 15:47 04/06/17 04/07/17 04/08/17 05:59 05:59 05:59 Intake Total 150 1050 560 Output Total 450 100 Balance -300 950 560 PT 25.1 SEC (12.0-15.0) H 04/07/17 04:32 INR 2.25 (0.83-1.16) H 04/07/17 04:32 - Physical Exam Constitutional: no apparent distress Eyes: PERRL Ears, Nose, Mouth, Throat: moist mucous membranes Cardiovascular: regular rate and rhythym Respiratory: no respiratory distress Gastrointestinal: normoactive bowel sounds, soft, non-tender abdomen Skin: warm Musculoskeletal: generalized weakness Neurologic: AAOx3 Psychiatric: interacting appropriately ICD10 Worksheet Patient Problems: Problems Problem Status Onset Afib Acute Fracture of metatarsal of right foot, closed Acute Knee effusion, right Acute Skin tear of left upper extremity Acute Skin tear of right upper extremity Acute Subarachnoid hemorrhage Active Bradycardia Acute CAD (coronary artery disease) Acute Chest pain Acute Dehydration Acute Diarrhea Acute Effusion of elbow joint, right Acute Fall at home Acute Hyperkalemia Acute Skin avulsion Acute Strain of right knee Acute
[2017-04-07] MEDS: OMEGA-3 FATTY ACIDS 1,000 MG CAP PO SCH (19:48)
[2017-04-08 05:14] LABS: INR 2.36 (0.83-1.16)
[2017-04-08 08:04] VITALS: BP 130/64; PULSE 81; RESP 16; TEMP 98.1; O2SAT 90
--- NOTE | 2017-04-08 10:12 | PDIAF ---
- Diagnosis Diagnosis: right 5th metatarsal fracture, knee effusion, falls Code Status: Full Code - Medication Management Discharge Medications: Medications to Continue on Transfer Allopurinol [Zyloprim] 150 mg PO DAILY 04/05/17 [Last Taken Unknown] Aspirin EC [Aspirin EC 81 mg (*)] 81 mg PO DAILY 04/05/17 [Last Taken Unknown] Herbals/Supplements -Info Only 1 ea PO DAILY 04/05/17 [Last Taken Unknown] Ranitidine HCl 300 mg PO BID PRN 04/05/17 [Last Taken Unknown] Torsemide [Demadex] 10 mg PO DAILY 04/05/17 [Last Taken Unknown] Vit C/Dl-E AC/Lut/Copper/Znox [Preservision Softgel] 1 each PO DAILY 04/05/17 [ Last Taken Unknown] Warfarin Sodium [Coumadin 2.5MG (*)] 2.5 mg PO DAILY16 04/05/17 [Last Taken ] metFORMIN HCL [Metformin HCl] 1,000 mg PO BID 04/05/17 [Last Taken Unknown] Acetaminophen [Tylenol 325mg (*)] 650 mg PO Q4HRS PRN #60 tab 04/08/17 [Last Taken Unknown] Discharge Medications: Refer to the Discharge Home Medication list for PRN reason. - Orders Services needed: Registered Nurse, Physical Therapy, Occupational Therapy Oxygen: PRN to keep O2 sats >90 Diet Recommendation: no restrictions on diet Weigh Patient: daily Activity/Weight Bearing Restrictions: WBAT, recommend flat soled orthopedic shoe for right metatarsal fracture Additional: Incentive spirometer - Labs/Radiology PT/INR Date: 04/15/17 Call or Fax Lab and Imaging Results to: Surjit - Follow Up Care Current Providers and Referrals: Jim Eddy MD [Primary Care Provider] - As per Instructions
[2017-04-08] MEDS: ALLOPURINOL 300 MG TAB PO SCH (10:38)
[2017-04-08] MEDS: TORSEMIDE 10 MG TAB PO SCH (10:39)
[2017-04-08] MEDS: metFORMIN HCL 500 MG TAB PO SCH (10:41)
[2017-04-08] MEDS: ASPIRIN EC 81 MG TAB PO SCH (10:42)
[2017-04-08] MEDS: amLODIPine BESYLATE 5 MG TAB PO SCH (10:42)
--- NOTE | 2017-04-08 20:17 | GDS ---
[f rep st] DISCHARGE SUMMARY DISCHARGE DIAGNOSES: 1. Frequent falls. 2. Left 5th metatarsal fracture. 3. Gait instability. 4. Atrial fibrillation. 5. Osteoporosis. CONSULTANTS: None. HISTORY: For details, please see dictated History and Physical dated April 05, 2015. In brief, the patient is an 87-year-old female with history of atrial fibrillation on chronic anticoagulation as w ell as osteoporosis and frequent falls, who presented to the emergency department after another fall at home. She had recently been hospitalized and had just returned home from [facility]. She was found to have metatarsal fracture and knee joint effusion due to her weakness and gait instability. She is admitted to the hospital for further management and placement. HOSPITAL COURSE: Patient admitted to medical surgical unit. Orthopedic consult was obtained. No s urgery was recommended. She worked with Physical Therapy and Occupational Therapy. Continued to grace ve difficulty with mobility. There is no evidence of syncope or presyncope contributing to her fall . She states she was in the bathroom, reaching for something and tripped over a basin. With respec t to her atrial fibrillation, she is rate controlled. I did discuss with her the risk and benefit o f anticoagulation regarding bleeding complications versus stroke prevention. She wishes to remain o n Coumadin. She did not hit her head or suffer any bleeding events from this fall and acknowledges the risk of ongoing anticoagulation. Her other medical problems remain stable. DISPOSITION: Patient is discharged to [facility] for rehab. DISCHARGE MEDICATIONS: Please see Q1Media for complete updated outpatient medication list. New me dications on discharge include Tylenol 650 mg p.o. q.4 hours p.r.n. #60, no refills. She will [place] all of her outpatient medications as prescribed. FOLLOWUP: Dr. Jim Eddy, primary care provider. /[id number]/MODL
== END 2017-04-08 12:15 | DRG 563 ==
LOC: F3N 19:25
PROVIDERS: ADMIT Hospitalist; ATTEND Hospitalist
DX: S92.352A Displaced fracture of fifth metatarsal bone, left foot, initial encounter for closed fracture (principal); M25.461 Effusion, right knee; I48.91 Unspecified atrial fibrillation; I25.10 Atherosclerotic heart disease of native coronary artery without angina pectoris; I11.9 Hypertensive heart disease without heart failure; I50.32 Chronic diastolic (congestive) heart failure; E11.9 Type 2 diabetes mellitus without complications; M81.0 Age-related osteoporosis without current pathological fracture; E78.5 Hyperlipidemia, unspecified; G47.33 Obstructive sleep apnea (adult) (pediatric); R29.6 Repeated falls; W19.XXXA Unspecified fall, initial encounter; Y92.012 Bathroom of single-family (private) house as the place of occurrence of the external cause; Z79.01 Long term (current) use of anticoagulants; Z95.5 Presence of coronary angioplasty implant and graft
CPT/HCPCS: 97162-GP; 97166-GO; 97530-GP; 97535-GO; G8978-GP-CK; G8979-GP-CJ; G8987-GO-CL; G8988-GO-CK

== ENCOUNTER 2017-06-02 14:50 | Emergency (ER) | payer OTHER, BC ==
[2017-06-02 14:58] VITALS: RESP 18
--- NOTE | 2017-06-02 15:30 | EDPHY ---
H & P Stated Complaint: Sent fro doctor's office for abnl coags/K+ HPI/ROS: HPI CHIEF COMPLAINT: Elevated INR sent from doctor's office HISTORY OF PRESENT ILLNESS: Patient very pleasant 87-year-old female she has significant past medical history for atrial fibrillation on Coumadin, she had routine INR checked today and was noted to be elevated. She was referred to the emergency room for full blood work. Per the patient as well as significant other at bedside they report she has been doing well. No complaints. She does have chronic lower extremity edema and right upper extremity edema she does tell me the right upper extremity edema is worse then normal. She denies chest pain shortness of breath Past Medical History: Atrial fibrillation, supratherapeutic INR, recurrent falls Past Surgical History: No recent surgical history Social History: Denies daily use drugs alcohol tobacco products. Family History: Noncontributory. ROS REVIEW OF SYSTEMS: A comprehensive 10 point review of systems is otherwise negative aside from elements mentioned in the history of present illness. Exam Constitutional triage nursing summary reviewed, vital signs reviewed, awake/ alert. Eyes normal conjunctivae and sclera, EOMI, PERRLA. HENT normal inspection, atraumatic, moist mucus membranes, no epistaxis, neck supple/ no meningismus, no raccoon eyes. Respiratory clear to auscultation bilaterally, normal breath sounds, no respiratory distress, no wheezing. Cardiovascular rate normal, regular rhythm, no murmur, no edema, distal pulses normal. Gastrointestinal soft, non-tender, no rebound, no guarding, normal bowel sounds, no distension, no pulsatile mass. Genitourinary no CVA tenderness. Musculoskeletal right upper extremity: This shows for this shows edema. No signs of infection. Neurovascular intact. Significant edema to the hand. Also bilateral lower extremity pitting edema. no midline vertebral tenderness, full range of motion, no calf swelling, no tenderness of extremities, no meningismus , good pulses, neurovascularly intact. Skin pink, warm, & dry, no rash, skin atraumatic. Neurologic awake, alert and oriented x 3, AAOx3, moves all 4 extremities equally, motor intact, sensory intact, CN II-XII intact, normal cerebellar, normal vision, normal speech. Psychiatric normal mood/affect. Heme/Lymph/Immune no lymphadenopathy. Differential Diagnosis: Includes but is not limited to in a particular order electrolyte disturbance, kidney dysfunction, supratherapeutic INR Medical Decision Making: Plan for this patient IV establishment, check basic blood work including coags. Re-evaluation: 1628: Blood work has been reviewed. Patient's INR is not 8. It is 4.7. She is not having active bleeding. Electrolytes are appropriate. Kidney function appropriate. I will allow her to be discharged. She should hold her Coumadin for the next 2 days. And then get her INR recheck. I explained this to her. Her fine with this plan. Source: Patient - Personal History Current Tetanus Diphtheria and Acellular Pertussis (TDAP): Yes Tetanus Vaccine Date: 2007 per pt's - Medical/Surgical History Hx Asthma: No Hx Chronic Respiratory Disease: No Hx Diabetes: Yes Hx Cardiac Disease: Yes Hx Renal Disease: No Hx Cirrhosis: No Hx Alcoholism: No Hx HIV/AIDS: No Hx Splenectomy or Spleen Trauma: No Other PMH: pmh- afib, htn, hld, obesity, CAD, BLE edema, BLE ulcers, sleep apnea - CPAP hs, SAH 2011, mulitple falls, DM II, pleural effusions, PE, gout-right index finger. psh- L artificial knee, T/A, stent 1995- - Social History Smoking Status: Former smoker Constitutional: Initial Vital Signs Temperature (C) 36.5 C 06/02/17 14:56 Heart Rate 92 06/02/17 14:56 Respiratory Rate 18 06/02/17 14:56 O2 Sat (%) 94 06/02/17 14:56 O2 Delivery Mode Room Air Allergies/Adverse Reactions: Sulfa (Sulfonamide Antibiotics) Allergy (Unknown, Verified 06/02/17 14:58) Home Medications: Medication Instructions Recorded Allopurinol [Zyloprim] 150 mg PO DAILY 04/05/17 Aspirin EC [Aspirin EC 81 mg (*)] 81 mg PO DAILY 04/05/17 Herbals/Supplements -Info Only 1 ea PO DAILY 04/05/17 Ranitidine HCl 300 mg PO BID PRN 04/05/17 Torsemide [Demadex] 10 mg PO DAILY 04/05/17 Vit C/Dl-E AC/Lut/Copper/Znox 1 each PO DAILY 04/05/17 [Preservision Softgel] Warfarin Sodium [Coumadin 2.5MG 2.5 mg PO DAILY16 04/05/17 (*)] metFORMIN HCL [Metformin HCl] 1,000 mg PO BID 04/05/17 Acetaminophen [Tylenol 325mg (*)] 650 mg PO Q4HRS PRN #60 tab 04/08/17 Medical Decision Making - Data Points Laboratory Results: Laboratory Results 06/02/17 15:50 06/02/17 15:50 06/02/17 06/02/17 06/02/17 15:50 15:50 15:50 WBC 6.41 10^3/uL 10^3/uL (3.80-9.50) RBC 4.01 10^6/uL L 10^6/uL (4.18-5.33) Hgb 12.2 g/dL L g/dL (12.6-16.3) Hct 37.8 % L % (38.0-47.0) MCV 94.3 fL fL (81.5-99.8) MCH 30.4 pg pg (27.9-34.1) MCHC 32.3 g/dL L g/dL (32.4-36.7) RDW 18.7 % H % (11.5-15.2) Plt Count 224 10^3/uL 10^3/uL (150-400) MPV 10.8 fL fL (8.7-11.7) Neut % (Auto) 80.2 % H % (39.3-74.2) Lymph % (Auto) 10.9 % L % (15.0-45.0) [place] % (Auto) 8.0 % % (4.5-13.0) Eos % (Auto) 0.3 % L % (0.6-7.6) Baso % (Auto) 0.3 % % (0.3-1.7) Nucleat RBC Rel Count 0.0 % % (0.0-0.2) Absolute Neuts (auto) 5.14 10^3/uL 10^3/uL (1.70-6.50) Absolute Lymphs (auto) 0.70 10^3/uL L 10^3/uL (1.00-3.00) Absolute Monos (auto) 0.51 10^3/uL 10^3/uL (0.30-0.80) Absolute Eos (auto) 0.02 10^3/uL L 10^3/uL (0.03-0.40) Absolute Basos (auto) 0.02 10^3/uL 10^3/uL (0.02-0.10) Absolute Nucleated RBC 0.00 10^3/uL 10^3/uL (0-0.01) Immature Gran % 0.3 % % (0.0-1.1) Immature Gran # 0.02 10^3/uL 10^3/uL (0.00-0.10) PT 45.3 SEC H SEC (12.0-15.0) INR 4.72 H (0.83-1.16) APTT 77.9 SEC H SEC (23.0-38.0) Sodium 140 mEq/L mEq/L (134-144) Potassium 3.7 mEq/L mEq/L (3.5-5.2) Chloride 106 mEq/L mEq/L (97-110) Carbon Dioxide 21 mEq/l L mEq/l (22-31) Anion Gap 13 mEq/L mEq/L (8-16) BUN 27 mg/dL H mg/dL (7-23) Creatinine 1.0 mg/dL mg/dL (0.6-1.0) Estimated GFR 53 Glucose 65 mg/dL L mg/dL (70-100) Calcium 7.5 mg/dL L mg/dL (8.5-10.4) Departure - Departure Disposition: Home, Routine, Self-Care Clinical Impression: Supratherapeutic INR Condition: Good Instructions: Elevated INR (ED) Additional Instructions: 1.Please hold her Coumadin for the next 2 days. And then get her INR rechecked by her doctor. 2. If you have any bleeding anywhere please return to the emergency room. Referrals: Jim Eddy MD [Primary Care Provider] - As per Instructions
[2017-06-02 16:00] LABS: % IMMATURE GRANULYOCYTES 0.3 % (0.0-1.1); ABSOLUTE IMMATURE GRANULOCYTES 0.02 10^3/uL (0.00-0.10); ADD DIFF? NO; ADD MORPH? NO; ADD SCAN? NO; ATYPICAL LYMPHOCYTE FLAG 0 (0-99); FRAGMENT RBC FLAG 20 (0-99); HEMATOCRIT 37.8 % (38.0-47.0); HEMOGLOBIN 12.2 g/dL (12.6-16.3); LEFT SHIFT FLG 0 (0-99); LIPEMIA HEMOLYSIS FLAG 80 (0-99); MEAN CELL HEMOGLOBIN 30.4 pg (27.9-34.1); MEAN CELL HEMOGLOBIN CONCENTR. 32.3 g/dL (32.4-36.7); MEAN CELL VOLUME 94.3 fL (81.5-99.8); MEAN PLATELET VOLUME 10.8 fL (8.7-11.7); PLATELET CLUMPS FLAG 0 (0-99); PLATELET COUNT 224 10^3/uL (150-400); RED BLOOD CELL COUNT 4.01 10^6/uL (4.18-5.33); RED CELL DISTRIBUTION WIDTH 18.7 % (11.5-15.2)
[2017-06-02 16:09] LABS: INR 4.72 (0.83-1.16); PROTIME(PATIENT) 45.3 SEC (12.0-15.0)
[2017-06-02 16:10] LABS: APTT 77.9 SEC (23.0-38.0)
[2017-06-02 16:20] LABS: ANION GAP 13 mEq/L (8-16); CALCIUM 7.5 mg/dL (8.5-10.4); CARBON DIOXIDE 21 mEq/l (22-31); CHLORIDE 106 mEq/L (97-110); GLOMERULAR FILTRATION RATE 53; GLUCOSE 65 mg/dL (70-100); POTASSIUM 3.7 mEq/L (3.5-5.2); SODIUM 140 mEq/L (134-144)
[2017-06-02 17:32] VITALS: PULSE 88; TEMP 97.9; O2SAT 95
== END 2017-06-02 17:32 | disposition home or self-care (01) ==
DX: R79.1 Abnormal coagulation profile (principal); I10 Essential (primary) hypertension; E11.9 Type 2 diabetes mellitus without complications; I25.10 Atherosclerotic heart disease of native coronary artery without angina pectoris; Z79.01 Long term (current) use of anticoagulants; Z79.82 Long term (current) use of aspirin; Z87.891 Personal history of nicotine dependence

== ENCOUNTER 2017-07-24 17:34 | Inpatient (IN) | payer OTHER, BC ==
[2017-07-24] MEDS ORDERED: ALTEPLASE 2 MG VIAL IVP PRN (18:02)
--- NOTE | 2017-07-24 18:19 | CPEKG ---
Heart Rate: 104 RR Interval: 577 QRSD Interval: 72 QT Interval: 364 QTC Interval: 479 QRS Elbert: -6 T Wave Elbert: 188 EKG Severity - ABNORMAL ECG - EKG Impression: ATRIAL FIBRILLATION, V-RATE 72-136 EKG Impression: MULTIFORM VENTRICULAR PREMATURE COMPLEXES EKG Impression: LOW VOLTAGE THROUGHOUT EKG Impression: NONSPECIFIC T ABNORMALITIES, LATERAL LEADS Electronically Signed By: Nola Vásquez 24-Jul-2017 21:34:00
--- NOTE | 2017-07-24 20:50 | EDPHY ---
H & P Stated Complaint: failure to thrive Time Seen by Provider: 07/24/17 17:38 HPI/ROS: CHIEF COMPLAINT: Hypoxemia, failure to thrive HISTORY OF PRESENT ILLNESS: This is an 87-year-old female presents from a half-way with her . The patient herself is unable to provide any history. Per the she was recently discharged from [facility] after an admission for intracranial hemorrhage following a fall. She has been at a care facility for the last 15 days. Today the care facility noted that she was hypoxic and having elevated blood pressure. Patient's denies any history of fevers or chills. He denies any history of vomiting or diarrhea. Patient herself is moaning continuously.. She provides no additional information. REVIEW OF SYSTEMS: Review of systems is unobtainable from this patient because of altered mentation. PAST MEDICAL HISTORY: Atrial fibrillation, hypertension. SOCIAL HISTORY: . Patient is a full core and her concurs. VITAL SIGNS Reviewed by me. GENERAL: Elderly female, moaning, responds to simple questions with yes or no answers. HEENT: Atraumatic. Eyes: No icterus, no injection. Dry mucous membranes. Neck: supple with no adenopathy. LUNGS: Diminished breath sounds at the bases CARDIAC: Irregularly irregular. No murmurs or gallops. ABDOMEN: Soft, mild diffuse tenderness throughout. No guarding or rebound. BACK: No CVA tenderness. EXTREMITIES: Scattered ecchymosis and skin tears throughout all extremities. 3 + pitting edema in the feet. Moving all extremities x4.. NEURO: Alert, follows some simple commands. SKIN: Very fragile skin, skin tears throughout all extremities. PSYCHIATRIC: Unable to assess - Personal History Current Tetanus/Diphtheria Vaccine: Yes Current Tetanus Diphtheria and Acellular Pertussis (TDAP): Yes Tetanus Vaccine Date: 2007 per pt's - Medical/Surgical History Hx Asthma: No Hx Chronic Respiratory Disease: No Hx Diabetes: Yes Hx Cardiac Disease: Yes Hx Renal Disease: No Hx Cirrhosis: No Hx Alcoholism: No Hx HIV/AIDS: No Hx Splenectomy or Spleen Trauma: No Other PMH: pmh- afib, htn, hld, obesity, CAD, BLE edema, BLE ulcers, sleep apnea - CPAP hs, SAH 2011, mulitple falls, DM II, pleural effusions, PE, gout-right index finger. psh- L artificial knee, T/A, stent 1995- - Social History Smoking Status: Former smoker Constitutional: Initial Vital Signs Heart Rate 115 H 07/24/17 17:43 Respiratory Rate 16 07/24/17 17:43 Blood Pressure 160/110 H 07/24/17 17:43 O2 Sat (%) 88 L 07/24/17 17:43 O2 Delivery Mode Oxymask O2 (L/minute) 15 Allergies/Adverse Reactions: Sulfa (Sulfonamide Antibiotics) Allergy (Unknown, Verified 06/02/17 14:58) Home Medications: Medication Instructions Recorded Allopurinol [Zyloprim] 150 mg PO DAILY 04/05/17 Aspirin EC [Aspirin EC 81 mg (*)] 81 mg PO DAILY 04/05/17 Herbals/Supplements -Info Only 1 ea PO DAILY 04/05/17 Ranitidine HCl 300 mg PO BID PRN 04/05/17 Torsemide [Demadex] 10 mg PO DAILY 04/05/17 Vit C/Dl-E AC/Lut/Copper/Znox 1 each PO DAILY 04/05/17 [Preservision Softgel] Warfarin Sodium [Coumadin 2.5MG 2.5 mg PO DAILY16 04/05/17 (*)] metFORMIN HCL [Metformin HCl] 1,000 mg PO BID 04/05/17 Acetaminophen [Tylenol 325mg (*)] 650 mg PO Q4HRS PRN #60 tab 04/08/17 Medical Decision Making - Diagnostics EKG Interpretation: 12-LEAD EKG: Please see the full report in [facility]. My interpretation: Atrial fibrillation, no acute ischemic changes Imaging Results: Imaging Impressions Chest X-Ray 07/24/17 18:01 Impression: 1. Moderate to marked enlargement of the cardiac silhouette. Consider pericardial effusion. 2. Haziness at both lung bases compatible with effusions layering posteriorly [id number] on the left and moderate on the right with adjacent compressive atelectatic change suspected. Possible CHF. Chest X-Ray 07/24/17 20:35 Impression: 1. Central vascular catheter from right IJ approach with tip in good position in the SVC. No pneumothorax. 2. Cardiomegaly. Consider pericardial effusion. 3. Bilateral pleural effusions mild to moderate on the left and moderate on the right with adjacent compressive atelectatic change. Procedures: Procedure: Limited transthoracic echocardiogram. A limited transthoracic echocardiogram was performed and interpreted by myself for possible pericardial effusion. Limited transthoracic echocardiogram: The pericardium was visualized and found to be positive for pericardial fluid. Cardiac activity was present. The study was positive for pericardial effusion. The study demonstrated moderate pericardial effusion. Procedure: Central line placement. Indication: Hypoxemia, no vascular access, possible pericardial effusion. Risks, benefits, alternatives discussed with the family including but not limited to bleeding, infection, vascular injury, and collapsed lung and consent obtained. A timeout was observed. Full maximal sterile barrier technique was used including cap, gown, sterile gloves, large sheet, hand washing and chlorhexidine prep. The area was anesthetized with 1% lidocaine. A 7 Romanian triple lumen was placed in the right internal jugular vein using standard Seldinger technique. IJ was imaged using ultrasound guidance. Ultrasound guidance was utilized during the procedure. There were no complications. Blood return low pressure, dark blood. Patient tolerated procedure well. CXR results: Appropriate line placement, and no pneumothorax. X-ray was interpreted by myself. Radiologist interpretation is pending. The procedure was performed by myself. ED Course/Re-evaluation: 87-year-old female presenting with a history of hypoxemia. History is provided by the . I am unclear what may have prompted the care facility to check the patient's oxygen level. She does appear to see be somewhat tachypneic on arrival to the emergency department. Multiple attempts were made to obtain blood and to place a peripheral IV which were unsuccessful. PICC line was ordered. Patient's initial chest x-ray demonstrates bilateral pleural effusions and a significantly enlarged cardiac silhouette with concerns for possible pericardial effusion. Patient returns from interventional radiology. PICC line was unable to be placed secondary to very small peripheral veins. Bedside ultrasound was performed by myself at this time. Patient does have a pericardial effusion mild to moderate in size. Central line was placed by myself for the access. Please see the procedure note. Patient's laboratory data is remarkable for elevated white blood cell count [id number], somewhat low H&H, creatinine of 2.7. Urinalysis is pending at the time this dictation. Patient's course thus far was discussed with Dr. Davide Galindo. Patient will be admitted to step-down for further evaluation of her hypoxemia, atrial fibrillation, potential pericardial effusion, bilateral pleural effusions, and significant edema. Given the patient's somewhat altered mental status, stat head CT was ordered. Chest CT was ordered without IV contrast to further evaluate the patient's pleural effusions and abdominal CT was ordered without contrast as the patient has abdominal tenderness on examination. Patient's troponin is 0.033 however her BNP is elevated a 8400. Differential Diagnosis: Differential diagnoses for the patient's symptom complex was considered including but not limited to cardiac arrhythmia, cardiac ischemia, congestive heart failure, pulmonary embolism, acute renal insufficiency, sepsis, pneumonia , pericardial effusion, anasarca. Consult/Admit Bed Type: Dr Davide Galindo, Stepdown - Data Points Laboratory Results: Laboratory Results 07/24/17 20:49 07/24/17 20:49 07/24/17 07/24/17 07/24/17 20:49 20:49 20:49 WBC 15.80 10^3/uL H 10^3/uL (3.80-9.50) RBC 2.93 10^6/uL L 10^6/uL (4.18-5.33) Hgb 9.5 g/dL L g/dL (12.6-16.3) Hct 29.6 % L % (38.0-47.0) MCV 101.0 fL H fL (81.5-99.8) MCH 32.4 pg pg (27.9-34.1) MCHC 32.1 g/dL L g/dL (32.4-36.7) RDW 20.1 % H % (11.5-15.2) Plt Count 239 10^3/uL 10^3/uL (150-400) MPV 9.8 fL fL (8.7-11.7) Neut % (Auto) 84.1 % H % (39.3-74.2) Lymph % (Auto) 7.3 % L % (15.0-45.0) Emanuel % (Auto) 7.6 % % (4.5-13.0) Eos % (Auto) 0.2 % L % (0.6-7.6) Baso % (Auto) 0.1 % L % (0.3-1.7) Nucleat RBC Rel Count 0.3 % H % (0.0-0.2) Absolute Neuts (auto) 13.30 10^3/uL H 10^3/uL (1.70-6.50) Absolute Lymphs (auto) 1.15 10^3/uL 10^3/uL (1.00-3.00) Absolute Monos (auto) 1.20 10^3/uL H 10^3/uL (0.30-0.80) Absolute Eos (auto) 0.03 10^3/uL 10^3/uL (0.03-0.40) Absolute Basos (auto) 0.01 10^3/uL L 10^3/uL (0.02-0.10) Absolute Nucleated RBC 0.05 10^3/uL H 10^3/uL (0-0.01) Immature Gran % 0.7 % % (0.0-1.1) Immature Gran # 0.11 10^3/uL H 10^3/uL (0.00-0.10) Platelet Estimate ADEQUATE (ADEQ) Polychromasia 1+ H Hypochromasia 2+ H Oval Macrocytes 3+ H Elliptocytes 1+ H Keratocytes 1+ H Schistocytes 1+ H PT 16.9 SEC H SEC (12.0-15.0) INR 1.37 H (0.83-1.16) D-Dimer 2.44 ug/mLFEU H ug/mLFEU (0.00-0.50) VBG Lactic Acid Sodium 142 mEq/L mEq/L (134-144) Potassium 3.7 mEq/L mEq/L (3.5-5.2) Chloride 106 mEq/L mEq/L (97-110) Carbon Dioxide 27 mEq/l mEq/l (22-31) Anion Gap 9 mEq/L mEq/L (8-16) BUN 53 mg/dL H mg/dL (7-23) Creatinine 2.7 mg/dL H mg/dL (0.6-1.0) Estimated GFR 17 Glucose 76 mg/dL mg/dL (70-100) Calcium 8.7 mg/dL mg/dL (8.5-10.4) Total Bilirubin 1.5 mg/dL H mg/dL (0.1-1.4) Conjugated Bilirubin 0.8 mg/dL H mg/dL (0.0-0.5) Unconjugated Bilirubin 0.7 mg/dL mg/dL (0.0-1.1) AST 17 IU/L IU/L (14-46) ALT 34 IU/L IU/L (9-52) Alkaline Phosphatase 188 IU/L H IU/L (38-126) Troponin I 0.033 ng/mL ng/mL (0.000-0.034) NT-Pro-B Natriuret Pep 8420 pg/mL H pg/mL (0-450) Total Protein 4.7 g/dL L g/dL (6.3-8.2) Albumin 1.8 g/dL L g/dL (3.5-5.0) 07/24/17 20:49 WBC RBC Hgb Hct MCV MCH MCHC RDW Plt Count MPV Neut % (Auto) Lymph % (Auto) Emanuel % (Auto) Eos % (Auto) Baso % (Auto) Nucleat RBC Rel Count Absolute Neuts (auto) Absolute Lymphs (auto) Absolute Monos (auto) Absolute Eos (auto) Absolute Basos (auto) Absolute Nucleated RBC Immature Gran % Immature Gran # Platelet Estimate Polychromasia Hypochromasia Oval Macrocytes Elliptocytes Keratocytes Schistocytes PT INR D-Dimer VBG Lactic Acid 1.7 mmol/L mmol/L (0.7-2.1) Sodium Potassium Chloride Carbon Dioxide Anion Gap BUN Creatinine Estimated GFR Glucose Calcium Total Bilirubin Conjugated Bilirubin Unconjugated Bilirubin AST ALT Alkaline Phosphatase Troponin I NT-Pro-B Natriuret Pep Total Protein Albumin Microbiology Results: MICROBIOLOGY 07/24/17 18:28 Nasal, Sinus - Swab Respiratory Panel (PCR) - Final No Organism Detected Departure - Departure Disposition: [facility] Acute Clinical Impression: Skin avulsion, Acute renal insufficiency, Pleural effusion, Pericardial effusion Afib Qualifiers: Atrial fibrillation type: chronic Qualified Code(s): I48.2 - Chronic atrial fibrillation Condition: Serious
[2017-07-24 21:03] LABS: PLATELET COUNT 239 10^3/uL (150-400)
[2017-07-24 21:19] LABS: INR 1.37 (0.83-1.16); PROTIME(PATIENT) 16.9 SEC (12.0-15.0)
[2017-07-24] MEDS ORDERED: ONDANSETRON DISINTEGRATING 4 MG TAB PO PRN (21:36)
[2017-07-24] MEDS ORDERED: ONDANSETRON 4 MG/2 ML VIAL IVP PRN (21:36)
[2017-07-24] MEDS ORDERED: fentaNYL 100 MCG/2 ML INJ ONE (21:49)
[2017-07-24] MEDS ORDERED: fentaNYL 100 MCG/2 ML INJ IVP ONE (21:52)
[2017-07-24] MEDS ORDERED: D50W 25 GM/50 ML SYR IVP PRN (22:57)
--- NOTE | 2017-07-24 23:01 | PDGENHP ---
History and Physical - Chief Complaint Acute encephalopathy - History of Present Illness Primary care provider: Dr. Oj Eddy Primary biologics specialist: Dr. Miki Joyce HPI: 87-year-old female presents with acute encephalopathy characterized as disorientation inability to communicate her discomfort, noted while she was at [facility] facility on the day of this presentation with reported hypoxia on room air, requiring 5 L nasal cannula, with associated edema, skin tears, constant moaning by the patient. The patient's reports that over the past several weeks she has been experiencing reduced functional capacity as well as impaired cognitive abilities. The symptoms began after the patient experienced acute intracranial hemorrhage which was treated supportively at [facility], with discontinuation of her systemic anticoagulation. After 3 day hospitalization she was transferred to [facility] where she received rehab, and then was transitioned to [facility] for long-term care approximately 1 week ago. Since she has been at [facility], she has been eating and drinking very poorly, only when the patient's is present in the evenings. As mentioned above, he has returned noted reduced cognitive capacity and poor ability to interact or engage in self care. Emergency department, the patient was notably hypoxic and required 8 L high- flow oxygen, reportedly had a possible pericardial effusion on bedside ultrasound, had a central line placed, and the patient's reported that she is full code. History Information - Allergies/Home Medication List Allergies/Adverse Reactions: Sulfa (Sulfonamide Antibiotics) Allergy (Unknown, Verified 06/02/17 14:58) Home Medications: Acetaminophen [Tylenol 325mg (*)] 650 mg PO Q4H PRN 07/24/17 [Last Taken Unknown ] Allopurinol [Allopurinol 300 MG (RX)] 150 mg PO DAILY 07/24/17 [Last Taken 07/24] Aspirin [Aspirin 81mg (*)] 81 mg PO DAILY 07/24/17 [Last Taken Unknown] Bisacodyl [Dulcolax] 10 mg RC DAILY PRN 07/24/17 [Last Taken Unknown] Calcium Carbonate [Tums 500MG (*)] 500 mg PO BID 07/24/17 [Last Taken 07/24/17] Cholecalciferol Vit D3 [Vitamin D3 (*)] 1,000 units PO BID 07/24/17 [Last Taken 07/24/17] Cyanocobalamin [Vitamin B12 (*)] 1,000 mcg PO DAILY 07/24/17 [Last Taken ] Herbals/Supplements -Info Only 1 each PO DAILY 07/24/17 [Last Taken Unknown] Nystatin Powder [Mycostatin Powder (RX)] 1 isaiah TOP TID 07/24/17 [Last Taken 06/02] [place]-3 Fatty Acids [Fish Oil 1000 mg (*)] 1,000 mg PO DAILY 07/24/17 [Last Taken Unknown] Polyethylene Glycol 3350 [Miralax 17 gm (*)] 17 gm PO DAILY 07/24/17 [Last Taken 07/24/17] Ranitidine HCl [Zantac] 300 mg PO DAILY 07/24/17 [Last Taken 07/24/17] Torsemide [Demadex] 40 mg PO DAILY 07/24/17 [Last Taken 07/24/17] Vit A/Vit C/Vit E/Zinc/Copper [Preservision Areds Softgel] 1 each PO BID [Last Taken 07/24/17] metFORMIN HCL [Glucophage 500 mg (*)] 500 mg PO BIDMEAL 07/24/17 [Last Taken Unknown] I have personally reviewed and updated: family history, medical history, social history, surgical history - Past Medical History atrial fibrillation (Permanent), coronary artery disease (With cardiac stents) Additional medical history: Chronic kidney disease stage 3 with baseline creatinine 1.0. Obstructive sleep apnea. Diabetes. Hyperlipidemia. Hypertension. Chronic lower extremity edema. History of subarachnoid hemorrhage the setting of mechanical falls, with recent non operable intracranial hemorrhage admitted to [facility]. Recurrent falls with resultant foot fractures - Surgical History Additional surgical history: Cardiac stents - Family History Additional family history: Coronary artery disease - Social History Smoking Status: Former smoker Alcohol Use: None Drug Use: None Additional social history: Currently residing in long-term care at [facility], she has been there for 1 week, she was previously [facility] for 20 days Review of Systems Review of Systems: ROS: 10pt was reviewed & negative except for what was stated in HPI & below Constitutional: Reports: other (Patient appears visibly uncomfortable and is moaning, does not localize any symptoms) Physical Exam Physical Exam: Temp Pulse Resp BP Pulse Ox 36.4 C 88 19 101/75 100 07/24/17 22:00 07/24/17 22:00 10/08/17 22:00 07/24/17 22:00 07/24/17 22:00 O2 (L/minute) 15 Constitutional: chronically ill appearing, obese, uncomfortable, unkempt Eyes: PERRL, anicteric sclera, EOMI Ears, Nose, Mouth, Throat: other (Tacky mucous membranes) Cardiovascular: systolic murmur (At the base), irregularly irregular, tachycardia, edema (Trace in the distal lower extremities, approximately 1+ in the proximal lower extremities) Respiratory: reduced air movement (Bilateral bases), inspiratory crackles (Mid lateral segment), No expiratory wheeze, No bronchial breath sounds Gastrointestinal: normoactive bowel sounds, tenderness (Lower abdomen, left upper quadrant), No guarding, No distension Skin: other (Skin tears bilateral upper extremities, dense ecchymoses bilateral upper extremities, pressure injury posterior aspect of bilateral lower extremities without surrounding erythema) Neurologic: other (Alert awake oriented x1 only able to follow some 1 step commands, responds to some verbal stimuli, mostly tactile stimuli), No facial droop Psychiatric: encephalopathic, agitated (Moaning), poor insight, poor memory Lab Data & Imaging Review 07/24/17 20:49 07/24/17 20:49 WBC 15.80 10^3/uL (3.80-9.50) H 07/24/17 20:49 RBC 2.93 10^6/uL (4.18-5.33) L 07/24/17 20:49 Hgb 9.5 g/dL (12.6-16.3) L 07/24/17 20:49 Hct 29.6 % (38.0-47.0) L 07/24/17 20:49 MCV 101.0 fL (81.5-99.8) H 07/24/17 20:49 MCH 32.4 pg (27.9-34.1) 07/24/17 20:49 MCHC 32.1 g/dL (32.4-36.7) L 07/24/17 20:49 RDW 20.1 % (11.5-15.2) H 07/24/17 20:49 Plt Count 239 10^3/uL (150-400) 07/24/17 20:49 MPV 9.8 fL (8.7-11.7) 07/24/17 20:49 Neut % (Auto) 84.1 % (39.3-74.2) H 07/24/17 20:49 Lymph % (Auto) 7.3 % (15.0-45.0) L 07/24/17 20:49 [place] % (Auto) 7.6 % (4.5-13.0) 07/24/17 20:49 Eos % (Auto) 0.2 % (0.6-7.6) L 07/24/17 20:49 Baso % (Auto) 0.1 % (0.3-1.7) L 07/24/17 20:49 Nucleat RBC Rel Count 0.3 % (0.0-0.2) H 07/24/17 20:49 Absolute Neuts (auto) 13.30 10^3/uL (1.70-6.50) H 07/24/17 20:49 Absolute Lymphs (auto) 1.15 10^3/uL (1.00-3.00) 07/24/17 20:49 Absolute Monos (auto) 1.20 10^3/uL (0.30-0.80) H 07/24/17 20:49 Absolute Eos (auto) 0.03 10^3/uL (0.03-0.40) 07/24/17 20:49 Absolute Basos (auto) 0.01 10^3/uL (0.02-0.10) L 07/24/17 20:49 Absolute Nucleated RBC 0.05 10^3/uL (0-0.01) H 07/24/17 20:49 Immature Gran % 0.7 % (0.0-1.1) 07/24/17 20:49 Immature Gran # 0.11 10^3/uL (0.00-0.10) H 07/24/17 20:49 Platelet Estimate ADEQUATE (ADEQ) 07/24/17 20:49 Polychromasia 1+ H 07/24/17 20:49 Hypochromasia 2+ H 07/24/17 20:49 Oval Macrocytes 3+ H 07/24/17 20:49 Elliptocytes 1+ H 07/24/17 20:49 Keratocytes 1+ H 07/24/17 20:49 Schistocytes 1+ H 07/24/17 20:49 PT 16.9 SEC (12.0-15.0) H 07/24/17 20:49 INR 1.37 (0.83-1.16) H 07/24/17 20:49 D-Dimer 2.44 ug/mLFEU (0.00-0.50) H 07/24/17 20:49 VBG Lactic Acid 1.7 mmol/L (0.7-2.1) 07/24/17 20:49 Sodium 142 mEq/L (134-144) 07/24/17 20:49 Potassium 3.7 mEq/L (3.5-5.2) 07/24/17 20:49 Chloride 106 mEq/L (97-110) 07/24/17 20:49 Carbon Dioxide 27 mEq/l (22-31) 07/24/17 20:49 Anion Gap 9 mEq/L (8-16) 07/24/17 20:49 BUN 53 mg/dL (7-23) H 07/24/17 20:49 Creatinine 2.7 mg/dL (0.6-1.0) H 07/24/17 20:49 Estimated GFR 17 07/24/17 20:49 Glucose 76 mg/dL (70-100) 07/24/17 20:49 Calcium 8.7 mg/dL (8.5-10.4) 07/24/17 20:49 Total Bilirubin 1.5 mg/dL (0.1-1.4) H 07/24/17 20:49 Conjugated Bilirubin 0.8 mg/dL (0.0-0.5) H 07/24/17 20:49 Unconjugated Bilirubin 0.7 mg/dL (0.0-1.1) 07/24/17 20:49 AST 17 IU/L (14-46) 07/24/17 20:49 ALT 34 IU/L (9-52) 07/24/17 20:49 Alkaline Phosphatase 188 IU/L (38-126) H 07/24/17 20:49 Troponin I 0.033 ng/mL (0.000-0.034) 07/24/17 20:49 NT-Pro-B Natriuret Pep 8420 pg/mL (0-450) H 07/24/17 20:49 Total Protein 4.7 g/dL (6.3-8.2) L 07/24/17 20:49 Albumin 1.8 g/dL (3.5-5.0) L 07/24/17 20:49 Visualized and Interpreted Chest x-ray results: Yes Chest X-Ray results: other (Bibasilar pleural effusions with globular appearing heart) Visualized and Interpreted EKG results: Yes EKG Interpretation: Positive for: other (Atrial fibrillation with poor R-wave conduction in lead V2) Assessment & Plan Assessment: 87-year-old female presenting with acute encephalopathy in the setting of acute hypoxic respiratory failure, acute pleural effusions, acute kidney injury Plan: 1. Acute encephalopathy. Evidenced by global brain dysfunction characterized as disorientation, somnolence, poor direct ability, all of which is an acute change from her baseline prior to her intracranial hemorrhage, with declined thereafter most likely secondary to combination of uremia from acute kidney injury, recent intracranial hemorrhage, hypoxia -attempt to stabilize conditions, monitor mental status -given the patient's cognitive status has declined since her intracranial hemorrhage and has not demonstrated any signs of improving, it is unlikely the patient's cognitive status will improve better than oriented to self, and minimally interactive -I have shared with the patient's that this portends a very poor prognosis, and that more palliative goals of care may be the most appropriate course of action for the patient -I have offered him a palliative consultation and the patient's would appreciate this in the morning 2. Acute hypoxic respiratory failure. Evidenced by SpO2 of 88% while on 5 L nasal cannula at [facility], requiring up to 8 L high-flow oxygen here currently 88% on 3 L nasal cannula requiring up titration and continuous pulse oximeter monitoring, most likely secondary to her acute pleural effusions -monitor respiratory status closely, as the patient is still currently full code -requiring step-down unit level care 3. Acute pleural effusions. Unclear whether these are secondary to congestive heart failure from valvular heart disease including wide-open tricuspid regurgitation, per Dr. Joyce on stat echocardiogram verses parapneumonic effusions with possible aspiration -after discussion with Dr. Miki Joyce, we are both in agreement that the patient's course is becoming terminal and that palliative conference with is most appropriate next step in action, prior to engaging in more aggressive care such as thoracentesis -given that the patient currently has acute kidney injury, will hold on diuresing 4. Acute kidney injury on chronic kidney disease stage 3. Most likely secondary to poor oral intake of solids and liquids during the time preceding this presentation, will give a small amount of IV fluid and gauge response overnight -if patient's renal function is worsening, would not recommend renal replacement therapy but would recommend more palliative conversation with the patient's who is her medical power of securities attorney 5. Systemic inflammatory response syndrome. Tachycardia, tachypnea, leukocytosis, unclear whether the patient has aspiration pneumonitis versus aspiration pneumonia versus another underlying infection -urinalysis has been sent from her H[place]er catheter which was placed in the emergency department -blood culture sent -respiratory viral panel negative -lactic acid normal -hold on antibiotics given no localized source of infection, chest CT demonstrates more atelectatic appearance rather than focal consolidation -abdominal CT does not demonstrate intra abdominal infection -monitor white blood cell count 6. Permanent atrial fibrillation. Monitor on telemetry, give IV metoprolol low dose required for rate control overnight 7. Anemia. Most likely secondary to chronic inflammatory disease, MCV 101, no evidence of blood loss 8. Coronary artery disease. Chronic, continue aspirin, no evidence of intracranial hemorrhage on head CT Diet. NPO until swallow eval Prophylaxis. High risk patient, SCDs, pharm contraindicated given recent bleed Code. Long discussion with patient's medical power of securities attorney, her , decided on full code at the present time, but is considering adjusting to do not resuscitate and will get palliative consultation in a.m., Cardiology will revisit this conversation with the patient tomorrow Disposition. Anticipated discharge uncertain this time, anticipated length stay is greater than 48 hours warranting inpatient admission status for reasonable medical necessity including acute hypoxic respiratory failure, acute encephalopathy, high risk comorbid conditions. 60 minutes of critical care time spent with the patient, her , at bedside , as well as coordinating care with Dr. Miki Joyce and Dr. Nola Vásquez, addressing the issues outlined above. Patient is critically ill and high risk of morbidity and/or mortality during this hospitalization.
[2017-07-24] MEDS ORDERED: NS 1,000 ML IV SCH (23:15)
[2017-07-24] MEDS ORDERED: D10W 250 ML PRN HYPOGLYCEMIA IV (23:30)
--- NOTE | 2017-07-25 00:41 | HOSPPROG ---
Hospitalist Progress Note Assessment/Plan: Night Float Note Paged by RN. Patient requested to speak with available provider to discuss patient resuscitation status. Previously discussed patient with Dr. Galindo for handoff report. Patient with history of ICH several weeks ago and progressive decline. She was found to be hypoxic at [facility] and transferred for further evaluation. reported initial advanced directive to be FULL resuscitation however after further consideration and patient progressive decline with poor prognosis would like to change resuscitation status to DNR/DNI. He is requesting additional supportive services and amenable to palliative care consultation. 20 minutes time spent counseling on patient status/prognosis with . Objective: Vital Signs Temp Pulse Resp BP Pulse Ox 37 C 87 20 92/49 L 100 07/24/17 23:21 07/24/17 23:21 07/24/17 23:21 07/24/17 23:21 07/24/17 23:21 PT 16.9 SEC (12.0-15.0) H 07/24/17 20:49 INR 1.37 (0.83-1.16) H 07/24/17 20:49 ICD10 Worksheet Patient Problems: Problems Problem Status Onset Acute renal insufficiency Acute Afib Acute Pericardial effusion Acute Pleural effusion Acute Skin avulsion Acute Subarachnoid hemorrhage Active Bradycardia Acute CAD (coronary artery disease) Acute Chest pain Acute Dehydration Acute Diarrhea Acute Effusion of elbow joint, right Acute Fall at home Acute Fracture of metatarsal of right foot, closed Acute Hyperkalemia Acute Knee effusion, right Acute Skin tear of left upper extremity Acute Skin tear of right upper extremity Acute Strain of right knee Acute
[2017-07-25] MEDS: ACETAMINOPHEN 325 MG TAB PO PRN ×2 (01:55→06:02)
[2017-07-25 04:59] LABS: PLATELET COUNT 188 10^3/uL (150-400)
[2017-07-25] MEDS: INSULIN REGULAR HUMAN 100 UNIT/ML SC SCH ×2 (07:28→12:13)
[2017-07-25] MEDS: NYSTATIN POWDER 15 GM BTL TP SCH ×3 (08:43→21:04)
[2017-07-25] MEDS: CALCIUM CARBONATE 500 MG CHEWABLE TAB PO SCH ×3 (08:46→09:52)
[2017-07-25] MEDS: FAMOTIDINE 20 MG TAB PO SCH ×3 (08:46→09:53)
[2017-07-25] MEDS: CHOLECALCIFEROL VIT D3 1,000 UNITS TAB PO SCH ×3 (08:46→09:52)
[2017-07-25] MEDS: CYANO/VITAMIN B12 1000 MCG TAB PO SCH ×3 (08:46→09:52)
[2017-07-25] MEDS: PRESERVISION AREDS2 FORMULA EYE VIT 1 EACH PO SCH ×3 (08:46→09:52)
[2017-07-25] MEDS: ASPIRIN 81 MG CHEWABLE TAB PO SCH ×3 (08:46→09:52)
[2017-07-25] MEDS: OMEGA-3 FATTY ACIDS 1,000 MG CAP PO SCH ×3 (08:46→09:53)
--- NOTE | 2017-07-25 08:58 | WOCRNPDOC ---
TAMEKA Advanced Assessment Note - Skin Integrity Problem, Advanced Assess Left Heel Pressure Injury Dressing Type: Mepilex Dressing Description: Clean/Dry, Intact Exudate Amount: Scant Exudate Characteristic(s): Serosanguinous Integumentary Issue Intervention: Visualized Under Dressing Felicia Wound Tissue: Erythema Wound Bed Constitution: Granulation Tissue (40%), Mixed Loose & Adhered Slough/ Eschar (60%) Wound Edges: Attached Site Odor: Slight, Pungent Site Measurement - Head-to-Toe Length X Width X Depth (cm): 3x3.5x0.3 Pressure Injury Stage: Unstageable Pressure Injury Present on Admit: Yes Skin Integrity Problem Comment: Autolytic debridement will be initated. Bilateral Lower Proximal Leg Pressure Injury Dressing Type: Open to Air Site Measurement - Head-to-Toe Length X Width X Depth (cm): 0.5x2x0, 1x0.5x1; both on the left. Right is: 1x5x0 Pressure Injury Stage: Deep Tissue Injury (DTI) Pressure Injury Present on Admit: Yes Skin Integrity Problem Comment: This appears to be either from the top of a sock or wrap that was too tight. The wounds run in a circumferential pattern but are not connected and are present on bilateral lower legs, just distal to the knees. Will observe the area. No need for dressings at this time. WC will round again later this week. Yaquelin POON in room for all care. Right Calf Venous Stasis Ulcer Dressing Type: Mepilex Dressing Description: Clean/Dry, Intact Exudate Amount: Scant Exudate Characteristic(s): Serosanguinous Integumentary Issue Intervention: Visualized Under Dressing Felicia Wound Tissue: Lipodermatosclerosis, Hemosiderin Staining, Venous Dermatitis , Painful/Tender Wound Bed Color: [place], Yellow Wound Bed Constitution: Granulation Tissue, Smooth Tissue Wound Edges: Attached Site Measurement - Head-to-Toe Length X Width X Depth (cm): 3.5x2x0.1 Left Lower Lateral Leg Venous Stasis Ulcer Dressing Type: Mepilex Dressing Description: Clean/Dry, Intact Integumentary Issue Intervention: Visualized Under Dressing Felicia Wound Tissue: Lipodermatosclerosis, Hemosiderin Staining, Venous Dermatitis , Shiny, Taught, Xerotic, Painful/Tender Wound Bed Constitution: Granulation Tissue, Smooth Tissue Wound Edges: Attached, Irregular Site Odor: Slight Site Measurement - Head-to-Toe Length X Width X Depth (cm): 3x2x0.1
[2017-07-25] MEDS ORDERED: Herbals/Supplements -Info Only PO SCH (09:00)
[2017-07-25] MEDS ORDERED: POLYETHYLENE GLYCOL 3350 17 GM PKT PO SCH (09:00)
--- NOTE | 2017-07-25 09:26 | ASMTCMCOM ---
CM Note CM Note Notes: 87 year old female admitted from [facility] due to Encephalopathy, Hypoxia, pericardial Effusion, Renal failure, Edema. She was recently at [facility] after an ICH and then sent to [facility] for rehab. She then went to [facility] for LTC. Patient has a HX of CAD with stents, CKD-Stage 3, JOSE, DM, HLD, HTN, recurrent falls and foot fx's. The MD has ordered a Palliative consult. CM to follow for discharge needs. Date Signed: 07/25/2017 09:25 AM Electronically Signed By:Lili Mckeon LCSW
--- NOTE | 2017-07-25 09:26 | ASMTCMCOM ---
CM Note CM Note Notes: 87 year old female admitted from [facility] due to Encephalopathy, Hypoxia, pericardial Effusion, Renal failure, Edema. She was recently at [facility] after an ICH and then sent to [facility] for rehab. She then went to [facility] for LTC. Patient has a HX of CAD with stents, CKD-Stage 3, JOSE, DM, HLD, HTN, recurrent falls and foot fx's. The MD has ordered a Palliative consult. CM to follow for discharge needs. Date Signed: 07/25/2017 09:25 AM Electronically Signed By:Lili Mckeon LCSW
--- NOTE | 2017-07-25 10:08 | PDMN ---
Medical Necessity Medical necessity: est los>2mn for acute encephalopathy with global brain dysfunction, acute resp failure with high O2 needs, acute pleural effusions, acute on CKD, and SIRS; comorbid afib, anemia, CAD; admit to ICU/SDU, palliative consult planned; per H&P
--- NOTE | 2017-07-25 11:42 | WOCRNPDOC ---
WOCRN Advanced Assessment Note - Skin Integrity Problem, Advanced Assess Sacrum Pressure Injury Dressing Type: Allevyn Life Site Measurement - Head-to-Toe Length X Width X Depth (cm): 1x0.5x0.1 Pressure Injury Stage: Stage 2 Pressure Injury Present on Admit: Yes Skin Integrity Problem Comment: Small stage 2 in a larger area of non blanching over sacrum and around small opening. Coccyx intact and non erythematic.
[2017-07-25 12:01] VITALS: BP 97/66; TEMP 97.5
--- NOTE | 2017-07-25 12:01 | PDCARPN ---
Cardiology Progress Note Chief Complaint: worsenings AMS, hypoxia, HARIKA Assessment/Plan: Assessment: 87 y/o F with PMH CAD/remote PCI, likely permanent AF, previous CVA, severe PHTN , DM, JOSE, CPAP, here after being michaela over from SNF with acute encephalopathy. Found to be hypoxic on RA and worsening mentation. Recently hospitalized at [facility] for SAH after a fall. Pt treated conservatively as the SAH was small and did not increase over serial imaging. Eliquis was discontinued. Transferred after rehab to [facility] for LTC. Pt basically has stopped eating or drinking. Plan for hospice evaluation today. We are available for consult should more aggressive care be pursued. Plan: 07/25/17 11:57 Objective: Vital Signs (8 Hrs) Temp Pulse Resp BP Pulse Ox 07/25/17 09:04 144/97 H 07/25/17 07:44 97.3 F 74 20 92/47 L 98 07/25/17 04:00 97.7 F 88 18 97/44 L 98 Intake/Output (24 Hrs) 07/24/17 07/25/17 07/26/17 05:59 05:59 05:59 Intake Total 698 Output Total 225 Balance 473 Intake: IV Intake (ml) 698 Output: Urine (ml) 225 Catheter 225 Other: Weight 59.7 kg 63.1 kg Result Diagrams: 07/25/17 04:30 07/25/17 04:30 Cardiac Labs: Cardiac Lab Results (72 Hrs) 07/25/17 04:30 Troponin I 0.028 ICD10 Worksheet Patient Problems: Problems Problem Status Onset Acute renal insufficiency Acute Afib Acute Pericardial effusion Acute Pleural effusion Acute Skin avulsion Acute Subarachnoid hemorrhage Active Bradycardia Acute CAD (coronary artery disease) Acute Chest pain Acute Dehydration Acute Diarrhea Acute Effusion of elbow joint, right Acute Fall at home Acute Fracture of metatarsal of right foot, closed Acute Hyperkalemia Acute Knee effusion, right Acute Skin tear of left upper extremity Acute Skin tear of right upper extremity Acute Strain of right knee Acute
--- NOTE | 2017-07-25 12:14 | ECHO ---
[email or web address] [address] [address] Main: [phone] Fax: Transthoracic Echocardiogram Name: THOMAS MCKEON MR#: [id number] Study Date: 07/24/2017 Study Time: 10:01 PM Date of : 1930 Age: 87 year(s) Height: ( ) Weight: ( ) BSA: Gender: Female Examination: Echo Indication: hypoxia, r/o effusion Image Quality: Technically Difficult Contrast: Requested by: Nola Vásquez BP: 107 mmHg/66 mmHg Heart Rate: Rhythm: Atrial fibrillation Indication: hypoxia, r/o effusion Procedure Staff Storage Garage Manager: Alyx Turpin Reading Physician: Theron Guajardo Requesting Provider: Conclusions: Exam consistent with a restrictive cardiomyopathy. Normal systolic function with EF of 60%. Severe tricuspid regurgitation with elevated RVSP. Pleural effusion. Measurements: Chambers Valvular Assessment AV/MV Valvular Assessment TV/PV Normal Normal Normal Name Value Range Name Value Range Name Value Range Ao Alyce (MM): 2.2 cm (2.2 cm-3.7 AV Vmax: 1.27 m/s (1 m/s-1.7 TR Vmax: 3.05 mm/s ( - ) cm) m/s) TR PGmax: 37 mmHg ( - ) EF Range: 60 % AV maxP mmHg ( - ) syst. PAP: 42 mmHg ( - ) LVOT Vmax: 0.66 m/s (0.7 m/s-1.1 PV Vmax: 1.00 m/s (0.6 m/s-0.9 m/s) m/s) MV E Vmax: 0.78 m/s ( - ) PV PGmax: 4 mmHg ( - ) Continued Measurements: Chambers Valvular Assessment TV/PV Name Value Name Value TAPSE: 0.9 cm CVP (est.): 5 mmHg Findings: Left Ventricle: Normal size left ventricle. Mild concentric LV hypertrophy. Normal global systolic LV function. The ejection fraction is estimated to be 60 %. Right Ventricle: Normal size right ventricle. Mildly reduced RV function. Left Atrium: The left atrium is severely dilated. Cannot rule out left atrial thrombus. Patient: THOMAS MCKEON Study Date: 07/24/2017 Page 1 of 2 10:01 PM Right Atrium: The right atrium is severely dilated. Mitral Valve: There is mild thickening of the mitral valve leaflets. Mild to moderate mitral regurgitation. There is Severe posterior annulus calcification. Aortic Valve: The aortic valve is tri-leaflet. Aortic sclerosis is present. Mild aortic valve regurgitation is present. Tricuspid Valve: The tricuspid valve appears normal. Severe tricuspid regurgitation is present. The pulmonary artery pressure is mild to moderately increased. Pulmonic Valve: The pulmonic valve is normal in appearance and function. Moderate pulmonic valve regurgitation is noted. IVC: The IVC is normal sized. There is inspiratory collapse of the IVC. Pericardium: Small pericardial effusion. There is a pleural effusion present. (No Signature Object) Patient: THOMAS MCKEON Study Date: 07/24/2017 Page 2 of 2 10:01 PM [id number]
--- NOTE | 2017-07-25 12:14 | ECHO ---
[email or web address] [address] [address] Main: [phone] Fax: Transthoracic Echocardiogram Name: THOMAS MCKEON MR#: [id number] Study Date: 07/24/2017 Study Time: 10:01 PM Date of : 1930 Age: 87 year(s) Height: ( ) Weight: ( ) BSA: Gender: Female Examination: Echo Indication: hypoxia, r/o effusion Image Quality: Technically Difficult Contrast: Requested by: Nola Vásquez BP: 107 mmHg/66 mmHg Heart Rate: Rhythm: Atrial fibrillation Indication: hypoxia, r/o effusion Procedure Staff Plasma Cutting Machine Operator: Alyx Turpin Reading Physician: Theron Guajardo Requesting Provider: Conclusions: Exam consistent with a restrictive cardiomyopathy. Normal systolic function with EF of 60%. Severe tricuspid regurgitation with elevated RVSP. Pleural effusion. Measurements: Chambers Valvular Assessment AV/MV Valvular Assessment TV/PV Normal Normal Normal Name Value Range Name Value Range Name Value Range Ao Alyce (MM): 2.2 cm (2.2 cm-3.7 AV Vmax: 1.27 m/s (1 m/s-1.7 TR Vmax: 3.05 mm/s ( - ) cm) m/s) TR PGmax: 37 mmHg ( - ) EF Range: 60 % AV maxP mmHg ( - ) syst. PAP: 42 mmHg ( - ) LVOT Vmax: 0.66 m/s (0.7 m/s-1.1 PV Vmax: 1.00 m/s (0.6 m/s-0.9 m/s) m/s) MV E Vmax: 0.78 m/s ( - ) PV PGmax: 4 mmHg ( - ) Continued Measurements: Chambers Valvular Assessment TV/PV Name Value Name Value TAPSE: 0.9 cm CVP (est.): 5 mmHg Findings: Left Ventricle: Normal size left ventricle. Mild concentric LV hypertrophy. Normal global systolic LV function. The ejection fraction is estimated to be 60 %. Right Ventricle: Normal size right ventricle. Mildly reduced RV function. Left Atrium: The left atrium is severely dilated. Cannot rule out left atrial thrombus. Patient: THOMAS MCKEON Study Date: 07/24/2017 Page 1 of 2 10:01 PM Right Atrium: The right atrium is severely dilated. Mitral Valve: There is mild thickening of the mitral valve leaflets. Mild to moderate mitral regurgitation. There is Severe posterior annulus calcification. Aortic Valve: The aortic valve is tri-leaflet. Aortic sclerosis is present. Mild aortic valve regurgitation is present. Tricuspid Valve: The tricuspid valve appears normal. Severe tricuspid regurgitation is present. The pulmonary artery pressure is mild to moderately increased. Pulmonic Valve: The pulmonic valve is normal in appearance and function. Moderate pulmonic valve regurgitation is noted. IVC: The IVC is normal sized. There is inspiratory collapse of the IVC. Pericardium: Small pericardial effusion. There is a pleural effusion present. (No Signature Object) Patient: THOMAS MCKEON Study Date: 07/24/2017 Page 2 of 2 10:01 PM [id number]
--- NOTE | 2017-07-25 12:14 | ECHO ---
[email or web address] [address] [address] Main: [phone] Fax: Transthoracic Echocardiogram Name: THOMAS MCKEON MR#: [id number] Study Date: 07/24/2017 Study Time: 10:01 PM Date of : 1930 Age: 87 year(s) Height: ( ) Weight: ( ) BSA: Gender: Female Examination: Echo Indication: hypoxia, r/o effusion Image Quality: Technically Difficult Contrast: Requested by: Nola Vásquez BP: 107 mmHg/66 mmHg Heart Rate: Rhythm: Atrial fibrillation Indication: hypoxia, r/o effusion Procedure Staff Service Desk Agent: Alyx Turpin Reading Physician: Theron Guajardo Requesting Provider: Conclusions: Exam consistent with a restrictive cardiomyopathy. Normal systolic function with EF of 60%. Severe tricuspid regurgitation with elevated RVSP. Pleural effusion. Measurements: Chambers Valvular Assessment AV/MV Valvular Assessment TV/PV Normal Normal Normal Name Value Range Name Value Range Name Value Range Ao Alyce (MM): 2.2 cm (2.2 cm-3.7 AV Vmax: 1.27 m/s (1 m/s-1.7 TR Vmax: 3.05 mm/s ( - ) cm) m/s) TR PGmax: 37 mmHg ( - ) EF Range: 60 % AV maxP mmHg ( - ) syst. PAP: 42 mmHg ( - ) LVOT Vmax: 0.66 m/s (0.7 m/s-1.1 PV Vmax: 1.00 m/s (0.6 m/s-0.9 m/s) m/s) MV E Vmax: 0.78 m/s ( - ) PV PGmax: 4 mmHg ( - ) Continued Measurements: Chambers Valvular Assessment TV/PV Name Value Name Value TAPSE: 0.9 cm CVP (est.): 5 mmHg Findings: Left Ventricle: Normal size left ventricle. Mild concentric LV hypertrophy. Normal global systolic LV function. The ejection fraction is estimated to be 60 %. Right Ventricle: Normal size right ventricle. Mildly reduced RV function. Left Atrium: The left atrium is severely dilated. Cannot rule out left atrial thrombus. Patient: THOMAS MCKEON Study Date: 07/24/2017 Page 1 of 2 10:01 PM Right Atrium: The right atrium is severely dilated. Mitral Valve: There is mild thickening of the mitral valve leaflets. Mild to moderate mitral regurgitation. There is Severe posterior annulus calcification. Aortic Valve: The aortic valve is tri-leaflet. Aortic sclerosis is present. Mild aortic valve regurgitation is present. Tricuspid Valve: The tricuspid valve appears normal. Severe tricuspid regurgitation is present. The pulmonary artery pressure is mild to moderately increased. Pulmonic Valve: The pulmonic valve is normal in appearance and function. Moderate pulmonic valve regurgitation is noted. IVC: The IVC is normal sized. There is inspiratory collapse of the IVC. Pericardium: Small pericardial effusion. There is a pleural effusion present. (No Signature Object) Patient: THOMAS MCKEON Study Date: 07/24/2017 Page 2 of 2 10:01 PM [id number]
--- NOTE | 2017-07-25 12:24 | HOSPPROG ---
Hospitalist Progress Note Assessment/Plan: 87 yo F w ckd, recent ICH 2/2 falls admitted w cognitive and functional decline plan is for transition to hospice care at [facility] Subjective: case d/w dr foote. family has made plans for hospice. 35 min spent at bedside w Objective: Vital Signs Temp Pulse Resp BP Pulse Ox 36.4 C 77 20 97/66 L 98 07/25/17 11:57 07/25/17 11:57 07/25/17 11:57 07/25/17 11:57 07/25/17 11:57 Laboratory Results 07/25/17 04:30 07/25/17 04:30 07/24/17 07/25/17 07/26/17 05:59 05:59 05:59 Intake Total 698 Output Total 225 Balance 473 PT 16.9 SEC (12.0-15.0) H 07/24/17 20:49 INR 1.37 (0.83-1.16) H 07/24/17 20:49 - Physical Exam Constitutional: no apparent distress, chronically ill appearing Eyes: PERRL, anicteric sclera Ears, Nose, Mouth, Throat: moist mucous membranes, hearing normal Cardiovascular: regular rate and rhythym, no murmur, rub, or gallop Respiratory: no respiratory distress Gastrointestinal: normoactive bowel sounds, No distension Genitourinary: No lizama in urethra Skin: warm, normal color Musculoskeletal: No full muscle strength Neurologic: No AAOx3 Psychiatric: No interacting appropriately Lymph, Heme, Immunologic: no cervical LAD ICD10 Worksheet Patient Problems: Problems Problem Status Onset Acute renal insufficiency Acute Afib Acute Pericardial effusion Acute Pleural effusion Acute Skin avulsion Acute Subarachnoid hemorrhage Active Bradycardia Acute CAD (coronary artery disease) Acute Chest pain Acute Dehydration Acute Diarrhea Acute Effusion of elbow joint, right Acute Fall at home Acute Fracture of metatarsal of right foot, closed Acute Hyperkalemia Acute Knee effusion, right Acute Skin tear of left upper extremity Acute Skin tear of right upper extremity Acute Strain of right knee Acute
--- NOTE | 2017-07-25 15:20 | PDPCPN ---
Palliative Care Progress Note Assessment/Plan: Referring provider: Dr Galindo Reason for consult: Complex medical decision making Symptom control HPI: Jenni Severino is a 87 yo with PMH D CHF, HTN, a fib, DM, CKD, and recent ICH 1 month ago admitted to the hospital for lethargy and encephalopathy. Recent ICH treated at [facility] sent to [facility] for rehab but discharged to [facility] for LTC 1 week ago. Since then she has been declining physical and cognitively. On admission in resp failure 2/2 acute pleural effusions. acute on chronic kidney disease as well as hypoalbuminemia. Palliative care consulted for complex medical decision making. Met with "Randy Mcdowell at the bedside this morning. He described Liset as not eating or drinking very much since her ICH. He is hoping she will get better and recover but also realizes she is not going in the recovery direction. He states at [facility] hospice was consulted but he has not been able to meet with them yet. We discussed her medical status with unlikely ability to recover completely. Discussed hospice care now and having hospice come and speak with him, he is agreeable. Assessment: Physical: - Pain: moans at times -tylenol PRN - might consider low dose roxanol 5mg PO Q2hr PRN for comfort - Dyspnea: - oxygen as needed - opiates as above - weakness/poor appetite - nursing support - turn and reposition - diet as able - constipation - at risk if using opiates dulcolax supp daily PRN Emotional/psychological: acute encephalopathy: maintain normal routines - treat for pain or constipation as above Advanced Care Planning: Is patient decisional?: no Code Status: DNR POA: Jeremias is MDPOA. Plan: [facility] hospice consult today. Subjective: moans Objective: Social History: to [place] for 58 years. 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 They 4 daughters, 3 local and 1 last year. Medication list reviewed ROS: General: fatigue, weakness ENT: negative Resp: dyspnea GI: poor appetite : negative MS: general discomfort Skin:multiple bruises and lower leg wounds Neuro: negative Psych: confusion Functional assessment: PPS: 40% Functional status: dependent on ADLs, IADLs Vital Signs Temp Pulse Resp BP Pulse Ox 36.4 C 77 20 97/66 L 98 07/25/17 11:57 07/25/17 11:57 07/25/17 11:57 07/25/17 11:57 07/25/17 11:57 Laboratory Results 07/25/17 04:30 07/25/17 04:30 07/24/17 07/25/17 07/26/17 05:59 05:59 05:59 Intake Total 698 Output Total 225 Balance 473 PT 16.9 SEC (12.0-15.0) H 07/24/17 20:49 INR 1.37 (0.83-1.16) H 07/24/17 20:49 Physical Exam - Physical Exam General Appearance: alert, no apparent distress Respiratory: No respiratory distress, No accessory muscle use Skin: normal color, warm/dry Extremities: pedal edema Neuro/Psych: alert, disoriented to place, disoriented to time, other (confused) ICD10 Worksheet Patient Problems: Problems Problem Status Onset Acute renal insufficiency Acute Afib Acute Palliative care encounter Acute Pericardial effusion Acute Pleural effusion Acute Skin avulsion Acute Subarachnoid hemorrhage Active Bradycardia Acute CAD (coronary artery disease) Acute Chest pain Acute Dehydration Acute Diarrhea Acute Effusion of elbow joint, right Acute Fall at home Acute Fracture of metatarsal of right foot, closed Acute Hyperkalemia Acute Knee effusion, right Acute Skin tear of left upper extremity Acute Skin tear of right upper extremity Acute Strain of right knee Acute - ICD10 Problem Qualifiers (1) Palliative care encounter
--- NOTE | 2017-07-25 15:20 | PDPCPN ---
Palliative Care Progress Note Assessment/Plan: Referring provider: Dr Galindo Reason for consult: Complex medical decision making Symptom control HPI: Jenni Severino is a 87 yo with PMH D CHF, HTN, a fib, DM, CKD, and recent ICH 1 month ago admitted to the hospital for lethargy and encephalopathy. Recent ICH treated at [facility] sent to [facility] for rehab but discharged to [facility] for LTC 1 week ago. Since then she has been declining physical and cognitively. On admission in resp failure 2/2 acute pleural effusions. acute on chronic kidney disease as well as hypoalbuminemia. Palliative care consulted for complex medical decision making. Met with "Randy Mcdowell at the bedside this morning. He described Liset as not eating or drinking very much since her ICH. He is hoping she will get better and recover but also realizes she is not going in the recovery direction. He states at [facility] hospice was consulted but he has not been able to meet with them yet. We discussed her medical status with unlikely ability to recover completely. Discussed hospice care now and having hospice come and speak with him, he is agreeable. Assessment: Physical: - Pain: moans at times -tylenol PRN - might consider low dose roxanol 5mg PO Q2hr PRN for comfort - Dyspnea: - oxygen as needed - opiates as above - weakness/poor appetite - nursing support - turn and reposition - diet as able - constipation - at risk if using opiates dulcolax supp daily PRN Emotional/psychological: acute encephalopathy: maintain normal routines - treat for pain or constipation as above Advanced Care Planning: Is patient decisional?: no Code Status: DNR POA: Jeremias is MDPOA. Plan: [facility] consult today. Subjective: moans Objective: Social History: to [place] for 58 years. 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 They 4 daughters, 3 local and 1 last year. Medication list reviewed ROS: General: fatigue, weakness ENT: negative Resp: dyspnea GI: poor appetite : negative MS: general discomfort Skin:multiple bruises and lower leg wounds Neuro: negative Psych: confusion Functional assessment: PPS: 40% Functional status: dependent on ADLs, IADLs Vital Signs Temp Pulse Resp BP Pulse Ox 36.4 C 77 20 97/66 L 98 07/25/17 11:57 07/25/17 11:57 07/25/17 11:57 07/25/17 11:57 07/25/17 11:57 Laboratory Results 07/25/17 04:30 07/25/17 04:30 07/24/17 07/25/17 07/26/17 05:59 05:59 05:59 Intake Total 698 Output Total 225 Balance 473 PT 16.9 SEC (12.0-15.0) H 07/24/17 20:49 INR 1.37 (0.83-1.16) H 07/24/17 20:49 Physical Exam - Physical Exam General Appearance: alert, no apparent distress Respiratory: No respiratory distress, No accessory muscle use Skin: normal color, warm/dry Extremities: pedal edema Neuro/Psych: alert, disoriented to place, disoriented to time, other (confused) ICD10 Worksheet Patient Problems: Problems Problem Status Onset Acute renal insufficiency Acute Afib Acute Palliative care encounter Acute Pericardial effusion Acute Pleural effusion Acute Skin avulsion Acute Subarachnoid hemorrhage Active Bradycardia Acute CAD (coronary artery disease) Acute Chest pain Acute Dehydration Acute Diarrhea Acute Effusion of elbow joint, right Acute Fall at home Acute Fracture of metatarsal of right foot, closed Acute Hyperkalemia Acute Knee effusion, right Acute Skin tear of left upper extremity Acute Skin tear of right upper extremity Acute Strain of right knee Acute - ICD10 Problem Qualifiers (1) Palliative care encounter
[2017-07-25] MEDS: LORazepam 2 MG/ML INJ IVP PRN (16:35)
[2017-07-26 09:18] VITALS: PULSE 94; RESP 18; O2SAT 94
[2017-07-26] MEDS: ASPIRIN 81 MG CHEWABLE TAB PO SCH (09:20)
[2017-07-26] MEDS: NYSTATIN POWDER 15 GM BTL TP SCH (09:26)
--- NOTE | 2017-07-26 11:01 | PDIAF ---
- Diagnosis Diagnosis: renal failure, terminal delirium Code Status: Do Not Resuscitate - Medication Management Discharge Medications: Medications to Continue on Transfer Bisacodyl [Dulcolax] 10 mg RC DAILY PRN 07/24/17 [Last Taken Unknown] Nystatin Powder [Mycostatin Powder] 1 isaiah TOP TID 07/24/17 [Last Taken 07/24/17] Polyethylene Glycol 3350 [Miralax 17 gm (*)] 17 gm PO DAILY 07/24/17 [Last Taken 07/24/17] LORazepam [Ativan inj 2 mg/ml (*)] 2 - 4 mg IVP Q1H PRN inj 07/26/17 [Last Taken Unknown] Nystatin Powder [Mycostatin Powder] 1 isaiah TP TID powder 07/26/17 [Last Taken Unknown] morphINE [morphINE 2mg/ml Inj (*)] 2 - 4 mg IVP Q1H PRN syr 07/26/17 [Last Taken Unknown] Discharge Medications: Refer to the Discharge Home Medication list for PRN reason. - Orders Services needed: Home Care, Registered Nurse, Certified Evaporator Operator Home Care Face to Face: I certify that this patient was under my care and that I had the required [id number] encounter meeting the encounter requirements on the discharge day. My findings support the fact that the patient is homebound as defined in Home Care Face to Face Continued: CMS Chapter 7 Medicare Benefits Manual 30.1.1 , The condition of the patient is such that there exists a normal inability to leave home and consequently, leaving home would require a considerable and taxing effort. - Follow Up Care Current Providers and Referrals: Jim Eddy MD [Primary Care Provider] - As per Instructions
--- NOTE | 2017-07-26 11:04 | HOSPPROG ---
Hospitalist Progress Note Assessment/Plan: 87 yo F w ckd, recent ICH 2/2 falls admitted w cognitive and functional decline plan is for transition to hospice care at [facility] today >30 minutes Objective: Vital Signs Temp Pulse Resp BP Pulse Ox 36.4 C 94 18 97/66 L 94 07/25/17 11:57 07/26/17 08:00 07/26/17 08:00 07/25/17 11:57 07/26/17 08:00 Laboratory Results 07/25/17 04:30 07/25/17 04:30 07/25/17 07/26/17 07/27/17 05:59 05:59 05:59 Intake Total 698 Output Total 225 Balance 473 PT 16.9 SEC (12.0-15.0) H 07/24/17 20:49 INR 1.37 (0.83-1.16) H 07/24/17 20:49 - Physical Exam Constitutional: no apparent distress ICD10 Worksheet Patient Problems: Problems Problem Status Onset Acute renal insufficiency Acute Afib Acute Palliative care encounter Acute Pericardial effusion Acute Pleural effusion Acute Skin avulsion Acute Subarachnoid hemorrhage Active Bradycardia Acute CAD (coronary artery disease) Acute Chest pain Acute Dehydration Acute Diarrhea Acute Effusion of elbow joint, right Acute Fall at home Acute Fracture of metatarsal of right foot, closed Acute Hyperkalemia Acute Knee effusion, right Acute Skin tear of left upper extremity Acute Skin tear of right upper extremity Acute Strain of right knee Acute
--- NOTE | 2017-07-26 11:04 | HOSPPROG ---
Hospitalist Progress Note Assessment/Plan: 87 yo F w ckd, recent ICH 2/2 falls admitted w cognitive and functional decline plan is for transition to hospice care at [facility] today >30 minutes Objective: Vital Signs Temp Pulse Resp BP Pulse Ox 36.4 C 94 18 97/66 L 94 07/25/17 11:57 07/26/17 08:00 07/26/17 08:00 07/25/17 11:57 07/26/17 08:00 Laboratory Results 07/25/17 04:30 07/25/17 04:30 07/25/17 07/26/17 07/27/17 05:59 05:59 05:59 Intake Total 698 Output Total 225 Balance 473 PT 16.9 SEC (12.0-15.0) H 07/24/17 20:49 INR 1.37 (0.83-1.16) H 07/24/17 20:49 - Physical Exam Constitutional: no apparent distress ICD10 Worksheet Patient Problems: Problems Problem Status Onset Acute renal insufficiency Acute Afib Acute Palliative care encounter Acute Pericardial effusion Acute Pleural effusion Acute Skin avulsion Acute Subarachnoid hemorrhage Active Bradycardia Acute CAD (coronary artery disease) Acute Chest pain Acute Dehydration Acute Diarrhea Acute Effusion of elbow joint, right Acute Fall at home Acute Fracture of metatarsal of right foot, closed Acute Hyperkalemia Acute Knee effusion, right Acute Skin tear of left upper extremity Acute Skin tear of right upper extremity Acute Strain of right knee Acute
--- NOTE | 2017-07-26 11:04 | HOSPPROG ---
Hospitalist Progress Note Assessment/Plan: 87 yo F w ckd, recent ICH 2/2 falls admitted w cognitive and functional decline plan is for transition to hospice care at [facility] today >30 minutes Objective: Vital Signs Temp Pulse Resp BP Pulse Ox 36.4 C 94 18 97/66 L 94 07/25/17 11:57 07/26/17 08:00 07/26/17 08:00 07/25/17 11:57 07/26/17 08:00 Laboratory Results 07/25/17 04:30 07/25/17 04:30 07/25/17 07/26/17 07/27/17 05:59 05:59 05:59 Intake Total 698 Output Total 225 Balance 473 PT 16.9 SEC (12.0-15.0) H 07/24/17 20:49 INR 1.37 (0.83-1.16) H 07/24/17 20:49 - Physical Exam Constitutional: no apparent distress ICD10 Worksheet Patient Problems: Problems Problem Status Onset Acute renal insufficiency Acute Afib Acute Palliative care encounter Acute Pericardial effusion Acute Pleural effusion Acute Skin avulsion Acute Subarachnoid hemorrhage Active Bradycardia Acute CAD (coronary artery disease) Acute Chest pain Acute Dehydration Acute Diarrhea Acute Effusion of elbow joint, right Acute Fall at home Acute Fracture of metatarsal of right foot, closed Acute Hyperkalemia Acute Knee effusion, right Acute Skin tear of left upper extremity Acute Skin tear of right upper extremity Acute Strain of right knee Acute
--- NOTE | 2017-07-26 11:27 | GDS ---
[f rep st] DISCHARGE SUMMARY DISCHARGE DIAGNOSES: 1. Terminal encephalopathy. 2. Recent intracranial hemorrhage. 3. Adult failure to thrive. 4. Kidney failure. HOSPITAL COURSE: Please see admission history and physical by Dr. Davide Galindo. The patient presente d from [facility] with increasing hypoxia and declining mental status. She had an intracranial hemorr gisell and hospitalized at [facility], transferred to [facility] and then to [facility]. This was ch ronicled well in Dr. Galindo's note. The palliative care consultation was undertaken with the patient 's who elected hospice care and she was transferred back to [facility] with hospice services marcellus martinez. /[id number]/MODL
--- NOTE | 2017-07-26 11:27 | GDS ---
[f rep st] DISCHARGE SUMMARY DISCHARGE DIAGNOSES: 1. Terminal encephalopathy. 2. Recent intracranial hemorrhage. 3. Adult failure to thrive. 4. Kidney failure. HOSPITAL COURSE: Please see admission history and physical by Dr. Davide Galindo. The patient presente d from [facility] with increasing hypoxia and declining mental status. She had an intracranial hemorr gisell and hospitalized at [facility], transferred to [facility] and then to [facility]. This was ch ronicled well in Dr. Galindo's note. The palliative care consultation was undertaken with the patient 's who elected hospice care and she was transferred back to [facility] with hospice services marcellus martinez. /[id number]/MODL
--- NOTE | 2017-07-26 11:27 | GDS ---
[f rep st] DISCHARGE SUMMARY DISCHARGE DIAGNOSES: 1. Terminal encephalopathy. 2. Recent intracranial hemorrhage. 3. Adult failure to thrive. 4. Kidney failure. HOSPITAL COURSE: Please see admission history and physical by Dr. Davide Galindo. The patient presente d from [facility] with increasing hypoxia and declining mental status. She had an intracranial hemorr gisell and hospitalized at [facility], transferred to [facility] and then to [facility]. This was ch ronicled well in Dr. Galindo's note. The palliative care consultation was undertaken with the patient 's who elected hospice care and she was transferred back to [facility] with hospice services marcellus martinez. /[id number]/MODL
[2017-07-26] MEDS: LORazepam 2 MG/ML INJ IVP PRN (12:23)
--- NOTE | 2017-07-26 14:53 | ASMTCMCOM ---
CM Note CM Note Notes: After Palliative consult family was interested in talking to [facility]. [facility] came and it was decided to take patient back to [facility] Tuesday with [facility] supervision. [facility] was contacted to transport at 1:00. Orders faxed to [facility] and [facility]. Date Signed: 07/26/2017 02:53 PM Electronically Signed By:Lili Mckeon LCSW
--- NOTE | 2017-07-26 14:53 | ASMTCMCOM ---
CM Note CM Note Notes: After Palliative consult family was interested in talking to [facility]. [facility] came and it was decided to take patient back to [facility] Tuesday with [facility] supervision. [facility] was contacted to transport at 1:00. Orders faxed to [facility] and [facility]. Date Signed: 07/26/2017 02:53 PM Electronically Signed By:Lili Mckeon LCSW
--- NOTE | 2017-07-26 14:55 | ASDISCHSUM ---
Discharge Information Plan Status:Hospice-SNF Medically Cleared to Leave:07/26/2017 Discharge Date:07/26/2017 01:20 PM D/C Disposition:Alf Facility ADT D/C Disposition:Hospice Facility Projected Discharge Date:07/26/2017 02:00 PM Transportation at D/C:ALS/BLS Discharge Delay Reason: Follow-Up Date:07/26/2017 02:00 PM Discharge Slot: Final Diagnosis:Acute encephalopathy, ICH Placement Information Referral Type:*Hospice Referral ID:[id number] Provider Name:Chasity Ruiz ([facility]) Address 1:[address] [place] [address] Address 2:[address] City:[place] Selection Factors: State:[place] Referral Type:*Long-Term/SNF Referral ID:[id number] Provider Name:[facility] Address 1:[address] Address 2: City:[place] Selection Factors: State:[place] Patient Contact Information Contact Name:JIMI Relationship: Address:[address] Work Phone: City:[place] [facility] Phone: State/Zip Code:[place] [address] Email: Financial Information Financial Class: Primary Plan Desc:MEDICARE INPATIENT Primary Plan Number:[id number] Secondary Plan Desc:[employer] FEDERAL PLAN Secondary Plan Number:[id number] Assessment Information [facility] Progress Note CM Note CM Note Notes: 87 year old female admitted from [facility] due to Encephalopathy, Hypoxia, pericardial Effusion, Renal failure, Edema. She was recently at [facility] after an ICH and then sent to [facility] for rehab. She then went to [facility] for LTC. Patient has a HX of CAD with stents, CKD-Stage 3, JOSE, DM, HLD, HTN, recurrent falls and foot fx's. The MD has ordered a Palliative consult. CM to follow for discharge needs. Date Signed: 07/25/2017 09:25 AM Electronically Signed By:Lili Mckeon LCSW [facility] CM Progress Note CM Note CM Note Notes: After Palliative consult family was interested in talking to [facility]. [facility] came and it was decided to take patient back to [facility] Tuesday with [facility] supervision. [facility] was contacted to transport at 1:00. Orders faxed to [facility] and [facility]. Date Signed: 07/26/2017 02:53 PM Electronically Signed By:Lili Mckeon LCSW Intervention Information Intervention Type:*IM-Signed Date of Service:07/26/2017 11:25 AM Patient Type:Inpatient Staff Member:Lisa Jaime Hours: Discipline: Severity: Comment:
--- NOTE | 2017-07-26 14:55 | ASDISCHSUM ---
Discharge Information Plan Status:Hospice-SNF Medically Cleared to Leave:07/26/2017 Discharge Date:07/26/2017 01:20 PM D/C Disposition:[facility] Facility ADT D/C Disposition:Hospice Facility Projected Discharge Date:07/26/2017 02:00 PM Transportation at D/C:ALS/BLS Discharge Delay Reason: Follow-Up Date:07/26/2017 02:00 PM Discharge Slot: Final Diagnosis:Acute encephalopathy, ICH Placement Information Referral Type:*Hospice Referral ID:[id number] Provider Name:Chasity Ruiz ([facility]) Address 1:[address] [place] [address] Address 2:[address] City:[place] Selection Factors: State:[place] Referral Type:*Long Term/SNF Referral ID:[id number] Provider Name:[facility] Address 1:[address] Address 2: City:[place] Selection Factors: State:[place] Patient Contact Information Contact Name:JIMI Relationship: Address:[address] Work Phone: City:[place] [facility] Phone: State/Zip Code:[place] [address] Email: Financial Information Financial Class: Primary Plan Desc:MEDICARE INPATIENT Primary Plan Number:[id number] Secondary Plan Desc:[employer] FEDERAL PLAN Secondary Plan Number:[id number] Assessment Information [facility] Progress Note CM Note CM Note Notes: 87 year old female admitted from [facility] due to Encephalopathy, Hypoxia, pericardial Effusion, Renal failure, Edema. She was recently at [facility] after an ICH and then sent to [facility] for rehab. She then went to [facility] for LTC. Patient has a HX of CAD with stents, CKD-Stage 3, JOSE, DM, HLD, HTN, recurrent falls and foot fx's. The MD has ordered a Palliative consult. CM to follow for discharge needs. Date Signed: 07/25/2017 09:25 AM Electronically Signed By:Lili Mckeon LCSW [facility] CM Progress Note CM Note CM Note Notes: After Palliative consult family was interested in talking to [facility]. [facility] came and it was decided to take patient back to [facility] Tuesday with [facility] supervision. [facility] was contacted to transport at 1:00. Orders faxed to [facility] and [facility]. Date Signed: 07/26/2017 02:53 PM Electronically Signed By:Lili Mckeon LCSW Intervention Information Intervention Type:*IM-Signed Date of Service:07/26/2017 11:25 AM Patient Type:Inpatient Staff Member:Lisa Jaime Hours: Discipline: Severity: Comment:
--- NOTE | 2017-07-26 14:55 | ASDISCHSUM ---
Discharge Information Plan Status:Hospice-SNF Medically Cleared to Leave:07/26/2017 Discharge Date:07/26/2017 01:20 PM D/C Disposition:Senior Living Facility ADT D/C Disposition:Hospice Facility Projected Discharge Date:07/26/2017 02:00 PM Transportation at D/C:ALS/BLS Discharge Delay Reason: Follow-Up Date:07/26/2017 02:00 PM Discharge Slot: Final Diagnosis:Acute encephalopathy, ICH Placement Information Referral Type:*Hospice Referral ID:[id number] Provider Name:Chasity Ruiz ([facility]) Address 1:[address] [place] [address] Address 2:[address] City:[place] Selection Factors: State:[place] Referral Type:*Senior Living/SNF Referral ID:[id number] Provider Name:[facility] Address 1:[address] Address 2: City:[place] Selection Factors: State:[place] Patient Contact Information Contact Name:JIMI Relationship: Address:[address] Work Phone: City:[place] [facility] Phone: State/Zip Code:[place] [address] Email: Financial Information Financial Class: Primary Plan Desc:MEDICARE INPATIENT Primary Plan Number:[id number] Secondary Plan Desc:[employer] FEDERAL PLAN Secondary Plan Number:[id number] Assessment Information [facility] Progress Note CM Note CM Note Notes: 87 year old female admitted from [facility] due to Encephalopathy, Hypoxia, pericardial Effusion, Renal failure, Edema. She was recently at [facility] after an ICH and then sent to [facility] for rehab. She then went to [facility] for LTC. Patient has a HX of CAD with stents, CKD-Stage 3, JOSE, DM, HLD, HTN, recurrent falls and foot fx's. The MD has ordered a Palliative consult. CM to follow for discharge needs. Date Signed: 07/25/2017 09:25 AM Electronically Signed By:Lili Mckeon LCSW [facility] CM Progress Note CM Note CM Note Notes: After Palliative consult family was interested in talking to [facility]. [facility] came and it was decided to take patient back to [facility] Tuesday with [facility] supervision. [facility] was contacted to transport at 1:00. Orders faxed to [facility] and [facility]. Date Signed: 07/26/2017 02:53 PM Electronically Signed By:Lili Mckeon LCSW Intervention Information Intervention Type:*IM-Signed Date of Service:07/26/2017 11:25 AM Patient Type:Inpatient Staff Member:Lisa Jaime Hours: Discipline: Severity: Comment:
--- NOTE | 2017-07-29 11:44 | PQFORM ---
PHYSICIAN QUERY FORM Needs Your Response This query form is being sent to you to assure this patient record is coded properly. Please respond to the question below: SOFTWARE DEVELOPER INTERN QUESTION: Dear Dr. Strong, In reviewing this patient medical record is noted the patient had the diagnosis of 'acute respiratory failure.' Patient presented in the ER with ' hypoxemia.' H&P states patient had the diagnosis of 'acute respiratory failure , with the SpO2 level of 88%, treated with 8L of oxygen.' In Dr. Galindo's medical necessity note dated 07/25 patient was diagnosed with 'acute respiratory failure w/ high O2 needs.' After study, should the diagnose of 'Acute respiratory failure, unspecified' be included in the discharge summary? ___X___ Yes No Other more appropriate diagnose Unable to determine Thank you [facility]Coding Dept. [phone] INSTRUCTIONS FOR RESPONSE: Answer question by clicking on the "Edit Document" button. Move cursor to area below the stars. When complete, hit "Save." Click on the "Sign" button, then click "Sign" again. Type in your PIN and hit "Enter." MTDD
--- NOTE | 2017-07-29 11:44 | PQFORM ---
PHYSICIAN QUERY FORM Needs Your Response This query form is being sent to you to assure this patient record is coded properly. Please respond to the question below: NAVAL SCIENCE TEACHER QUESTION: Dear Dr. Strong, In reviewing this patient medical record is noted the patient had the diagnosis of 'acute respiratory failure.' Patient presented in the ER with ' hypoxemia.' H&P states patient had the diagnosis of 'acute respiratory failure , with the SpO2 level of 88%, treated with 8L of oxygen.' In Dr. Galindo's medical necessity note dated 07/25 patient was diagnosed with 'acute respiratory failure w/ high O2 needs.' After study, should the diagnose of 'Acute respiratory failure, unspecified' be included in the discharge summary? ___X___ Yes No Other more appropriate diagnose Unable to determine Thank you [facility] [phone] INSTRUCTIONS FOR RESPONSE: Answer question by clicking on the "Edit Document" button. Move cursor to area below the stars. When complete, hit "Save." Click on the "Sign" button, then click "Sign" again. Type in your PIN and hit "Enter." MTDD
--- NOTE | 2017-07-29 11:44 | PQFORM ---
PHYSICIAN QUERY FORM Needs Your Response This query form is being sent to you to assure this patient record is coded properly. Please respond to the question below: STRAP FOLDING MACHINE OPERATOR QUESTION: Dear Dr. Strong, In reviewing this patient medical record is noted the patient had the diagnosis of 'acute respiratory failure.' Patient presented in the ER with ' hypoxemia.' H&P states patient had the diagnosis of 'acute respiratory failure , with the SpO2 level of 88%, treated with 8L of oxygen.' In Dr. Galindo's medical necessity note dated 07/25 patient was diagnosed with 'acute respiratory failure w/ high O2 needs.' After study, should the diagnose of 'Acute respiratory failure, unspecified' be included in the discharge summary? ___X___ Yes No Other more appropriate diagnose Unable to determine Thank you [facility]Coding Dept. [phone] INSTRUCTIONS FOR RESPONSE: Answer question by clicking on the "Edit Document" button. Move cursor to area below the stars. When complete, hit "Save." Click on the "Sign" button, then click "Sign" again. Type in your PIN and hit "Enter." MTDD
== END 2017-07-26 13:20 | disposition hospice, home (50) | DRG 70 ==
LOC: EDUNIT# → F2N 22:30
PROVIDERS: ADMIT Internal Medicine; ATTEND Internal Medicine
PROC: 02HV33Z Insertion of Infusion Device into Superior Vena Cava, Percutaneous Approach (ICD-10-PCS; principal; 2017-07-24)
DX: G93.49 Other encephalopathy (principal); J96.00 Acute respiratory failure, unspecified whether with hypoxia or hypercapnia; R62.7 Adult failure to thrive; E78.5 Hyperlipidemia, unspecified; I25.10 Atherosclerotic heart disease of native coronary artery without angina pectoris; I48.2 Chronic atrial fibrillation; I12.9 Hypertensive chronic kidney disease with stage 1 through stage 4 chronic kidney disease, or unspecified chronic kidney disease; N18.3 Chronic kidney disease, stage 3 (moderate); G47.33 Obstructive sleep apnea (adult) (pediatric); E11.9 Type 2 diabetes mellitus without complications; L89.620 Pressure ulcer of left heel, unstageable; L89.152 Pressure ulcer of sacral region, stage 2; Z95.5 Presence of coronary angioplasty implant and graft
CPT/HCPCS: 82947-QW; C1751; J2060; J3010